=== PATIENT | female | born 1945 | race Hispanic/Latino ===

== ENCOUNTER 2020-02-02 15:08 | Emergency (ER) | payer OTHER ==
[2020-02-02 16:58] LABS: Absolute Lymphocytes (CBC) 1.6 K/uL (0.7-4.9); Basophils % 0.7 % (0-1.3); Hematocrit 38.9 % (36.0-45.0); Lymphocytes % 34.6 % (15.3-44.8); MPV 7.8 fL (7.6-11.3); RBC Red Blood Cell Count 4.15 M/uL (3.86-4.86)
[2020-02-02 17:23] LABS: ALT/SGPT 24 U/L (12-78); AST/SGOT 24 U/L (15-37); Albumin 3.7 g/dL (3.4-5.0); Alkaline Phosphatase 155 U/L (45-117); BUN Blood Urea Nitrogen 12 mg/dL (7-18); Bicarbonate 29 mmol/L (21-32); Bilirubin Direct < 0.1 mg/dL (0-0.2); Bilirubin Total 0.2 mg/dL (0.2-1.0); Glucose Level 83 mg/dL (74-106); Lipase 359 U/L (73-393); Potassium 4.2 mmol/L (3.5-5.1); Protein, Total 7.1 g/dL (6.4-8.2); Sodium Level 144 mmol/L (136-145)
[2020-02-02 18:43] LABS: Urine Blood NEGATIVE (NEG); Urine Glucose NEGATIVE (NEG); Urine Protein NEGATIVE (NEG); Urine Specific Gravity 1.025 (1.005-1.030)
--- NOTE | 2020-02-02 18:52 | RAD REPORT ---
EXAM DESCRIPTION: CT - Abdomen Pelvis W Contrast - 02/02/2020 6:21 pm CLINICAL HISTORY: Abdominal pain COMPARISON: 2008 TECHNIQUE: Computed axial tomography of the abdomen pelvis was obtained. 100 cc Isovue-300 was admin istered intravenously. Oral contrast was not requested which limits evaluation of bowel. All CT scans are performed using dose optimization technique as appropriate and may include automated exposure control or mA/KV adjustment according to patient size. FINDINGS: Small hepatic cysts. Spleen, pancreas, adrenals and left kidney unremarkable. Small right renal cyst There is no evidence of diverticulitis. Normal appendix Spondylosis involves lumbar spine resulting in spinal stenosis IMPRESSION: No acute abnormality is displayed.
[2020-02-02 19:27] VITALS: TEMP 98
[2020-02-02 19:31] VITALS: BP 176/57; O2SAT 98
--- NOTE | 2020-02-05 17:17 | EDPHYS ---
Physician Documentation [facility] Name: Jolanta Stockton Age: 75 yrs Sex: Female : 1945 Arrival Date: 02/02/2020 Time: 15:11 Bed 15 Private MD: RAUDEL Physician Yoel Mcrae HPI: 02/01 16:02 This 75 yrs old Female presents to ER via Ambulatory with complaints of jmm Abdominal Pain - r/o appendicitis. 16:02 The patient presents with abdominal pain right lower quadrant. Onset: The jmm symptoms/episode began/occurred gradually, 2 week(s) ago. The symptoms do not radiate. Associated signs and symptoms: Pertinent negatives: nausea, vomiting, and diarrhea, chest pain, dysuria, fever, shortness of breath, vaginal discharge, vomiting. The symptoms are described as achy. The patient has not experienced similar symptoms in the past. Historical: - Allergies: 15:46 No Known Allergies; ph - Home Meds: 15:46 seizure medication [Active]; ph - PMHx: 15:46 Seizures; ph - Immunization history:: Adult Immunizations unknown. - Social history:: Smoking status: Patient denies any tobacco usage or history of. ROS: 16:02 Constitutional: Negative for fever, chills, and weight loss, Cardiovascular: Negative jmm for chest pain, palpitations, and edema, Respiratory: Negative for shortness of breath, cough, wheezing, and pleuritic chest pain. 16:02 Back: Negative for injury and pain, MS/Extremity: Negative for injury and deformity. 16:02 Abdomen/GI: Positive for abdominal pain. 16:02 All other systems are negative. Exam: 16:02 Constitutional: This is a well developed, well nourished patient who is awake, alert, jmm and in no acute distress. Head/Face: atraumatic. Eyes: EOMI, no conjunctival erythema appreciated ENT: Moist Mucus Membranes Neck: Trachea midline, Supple Chest/axilla: Normal chest wall appearance and motion. Cardiovascular: Regular rate and rhythm. No edema appreciated Respiratory: Normal respirations, no respiratory distress appreciated 16:02 Back: Normal ROM Skin: General appearance color normal MS/ Extremity: Moves all extremities, no obvious deformities appreciated, no edema noted to the lower extremities Neuro: Awake and alert, normal gait Psych: Behavior is normal, Mood is normal, Patient is cooperative and pleasant 16:02 Abdomen/GI: Inspection: abdomen appears normal, Bowel sounds: normal, Palpation: soft, mild abdominal tenderness, in the right lower quadrant. Vital Signs: 15:43 BP 161 / 70; Pulse 56; Resp 18; Temp 98.0; Pulse Ox 100% on R/A; ph 18:35 BP 165 / 53; Pulse 56; Resp 16 S; Pulse Ox 98% on R/A; Pain 5/10; iw 18:36 BP 165 / 53; Pulse 55; Resp 16; Pulse Ox 97% on R/A; dh4 19:19 BP 176 / 57; Pulse 54; Resp 17 S; Pulse Ox 98% on R/A; jd3 MDM: 16:02 Patient medically screened. [facility] 18:57 Data reviewed: vital signs, nurses notes. Counseling: I had a detailed discussion with willard the patient and/or guardian regarding: the historical points, exam findings, and any diagnostic results supporting the discharge/admit diagnosis, lab results, radiology results, the need for outpatient follow up, to return to the emergency department if symptoms worsen or persist or if there are any questions or concerns that arise at home. ED course: Patient is alert and non toxic in appearance in the ED. Advised to follow up with pcp and otherwise given strict return precautions. patient understood and agrees with the plan of care. . 02/01 16:03 Order name: Basic Metabolic Panel; Complete Time: 17: [facility] 02/01 16:03 Order name: CBC with Diff; Complete Time: 17:18 [facility] 02/01 16:03 Order name: Hepatic Function; Complete Time: 17: [facility] 02/01 16:03 Order name: Lipase; Complete Time: 17: [facility] 02/01 18:15 Order name: Urine Dipstick--Ancillary (enter results); Complete Time: 18:41 02/01 18:15 Order name: Urine Dipstick--Ancillary (enter results) 02/01 16:03 Order name: IV Saline Lock; Complete Time: 17:29 [facility] 02/01 16:03 Order name: Labs collected and sent; Complete Time: 17: [facility] 02/01 16:03 Order name: Urine Dipstick-Ancillary (obtain specimen); Complete Time: 18:03 [facility] 02/01 17:18 Order name: CT Abd/Pelvis - IV Contrast Only; Complete Time: 18:55 willard Administered Medications: No medications were administered Disposition: 02/02 07:48 Co-signature as Attending Physician, Yoel Mcrae MD I agree with the assessment and michelle plan of care. Disposition: 02/02/20 19:00 Discharged to Home. Impression: Abdominal tenderness. - Condition is Fair. - Discharge Instructions: Abdominal Pain, Adult. - Medication Reconciliation Form, Thank You Letter, Antibiotic Education, Prescription Opioid Use form. - Follow up: Private Physician; When: 2 - 3 days; Reason: Recheck today's complaints, Continuance of care, Re-evaluation by your physician. Signatures: Dispatcher [employer] EDYoel Ortega MD MD cha Mickail, Joel, PA PA jmm Hall, Patricia, RN RN Brian Guo RN RN jd3 Corrections: (The following items were deleted from the chart) 02/01 19:20 19:00 02/02/2020 19:00 Discharged to Home. Impression: Abdominal tenderness. Condition jd3 is Fair. Forms are Medication Reconciliation Form, Thank You Letter, Antibiotic Education, Prescription Opioid Use. Follow up: Private Physician; When: 2 - 3 days; Reason: Recheck today's complaints, Continuance of care, Re-evaluation by your physician. willard
--- NOTE | 2020-02-05 17:17 | ER ---
Nurse's Notes [facility] Name: Jolanta Stockton Age: 75 yrs Sex: Female : 1945 Arrival Date: 02/02/2020 Time: 15:11 Bed 15 Private MD: Diagnosis: Abdominal tenderness Presentation: 02/01 15:43 Chief complaint: Patient states: RLQ pain x approx 2 weeks, seen at clinic and told to come to ED to check for appendicitis, denies N/V/D or fever. Coronavirus screen: Patient denies a cough. Patient denies shortness of breath or difficulty breathing. Patient denies measured and/or subjective temperature greater than 100.4F prior to today's visit. Patient denies travel on a cruise ship or to a country the [facility] currently lists as an affected area. Patient denies contact with known and/or suspected case of COVID-19. Ebola Screen: No symptoms or risks identified at this time. Initial Sepsis Screen: Does the patient meet any 2 criteria? No. Patient's initial sepsis screen is negative. Does the patient have a suspected source of infection? No. Patient's initial sepsis screen is negative. Risk Assessment: Do you want to hurt yourself or someone else? Patient reports no desire to harm self or others. Onset of symptoms was February 02, 2020. 15:43 Method Of Arrival: Ambulatory 15:43 Acuity: JUDITH 3 Historical: - Allergies: 15:46 No Known Allergies; ph - Home Meds: 15:46 seizure medication [Active]; ph - PMHx: 15:46 Seizures; - Immunization history:: Adult Immunizations unknown. - Social history:: Smoking status: Patient denies any tobacco usage or history of. Screenin:00 Abuse screen: Denies threats or abuse. Denies injuries from another. Nutritional iw screening: No deficits noted. Tuberculosis screening: No symptoms or risk factors identified. Fall Risk IV access (20 points). Assessment: 16:00 General: Appears in no apparent distress. comfortable, Behavior is calm, cooperative. iw Pain: Complains of pain in right lower quadrant. Neuro: Level of Consciousness is awake, alert, obeys commands, Oriented to person, place, time, situation, Moves all extremities. Full function. Cardiovascular: Patient's skin is warm and dry. Respiratory: Respiratory effort is even, unlabored, Respiratory pattern is regular, symmetrical. GI: Bowel sounds present X 4 quads. Abd is soft X 4 quads Abdomen is tender to palpation in right lower quadrant. Derm: Skin is intact, is healthy with good turgor. Musculoskeletal: Range of motion: intact in all extremities. 17:00 Reassessment: Patient appears in no apparent distress at this time. Patient and/or iw family updated on plan of care and expected duration. Pain level reassessed. Patient is alert, oriented x 3, equal unlabored respirations, skin warm/dry/pink. 18:35 Reassessment: Patient appears in no apparent distress at this time. Patient and/or iw family updated on plan of care and expected duration. Pain level reassessed. 19:19 Reassessment: Patient and/or family updated on plan of care and expected duration. Pain jd3 level reassessed. Patient is alert, oriented x 3, equal unlabored respirations, skin warm/dry/pink. pt reported understanding of discharge instructions. Patient states feeling better. Vital Signs: 15:43 BP 161 / 70; Pulse 56; Resp 18; Temp 98.0; Pulse Ox 100% on R/A; ph 18:35 BP 165 / 53; Pulse 56; Resp 16 S; Pulse Ox 98% on R/A; Pain 5/10; iw 18:36 BP 165 / 53; Pulse 55; Resp 16; Pulse Ox 97% on R/A; dh4 19:19 BP 176 / 57; Pulse 54; Resp 17 S; Pulse Ox 98% on R/A; jd3 ED Course: 15:11 Patient arrived in ED. as 15:17 Roger Alicea PA is PHCP. jmm 15:17 Yoel Mcrae MD is Attending Physician. jmm 15:45 Triage completed. ph 15:46 Arm band placed on Patient placed in an exam room. ph 16:16 Loree Santamaria, RN is Primary Nurse. iw 17:00 Initial lab(s) drawn, by me, sent to lab. Inserted saline lock: 20 gauge in left iw antecubital area, using aseptic technique. Blood collected. 18:23 CT Abd/Pelvis - IV Contrast Only In Process Unspecified. EDMS 18:35 Patient has correct armband on for positive identification. iw 19:20 No provider procedures requiring assistance completed. IV discontinued, intact, jd3 bleeding controlled, No redness/swelling at site. Pressure dressing applied. Administered Medications: No medications were administered Outcome: 19:00 Discharge ordered by . willard 19:20 Discharged to home via wheelchair, with family. jd3 19:20 Condition: stable 19:20 Discharge instructions given to patient, Instructed on discharge instructions, follow up and referral plans. Demonstrated understanding of instructions, follow-up care. 19:20 Patient left the ED. jd3 Signatures: Dispatcher [employer] EDMS Roger Alicea PA PA jmm Martinez, Amelia as Williams, Irene, RN Melinda Lieberman RN RN Brian Guo RN RN Bryce Reid [facility]
== END 2020-02-02 19:20 | disposition home or self-care (01) ==
LOC: ER 15:08
DX: R10.813 Right lower quadrant abdominal tenderness (principal); G40.909 Epilepsy, unspecified, not intractable, without status epilepticus
CPT/HCPCS: 85025; 80048; 36415; 80076; 81003; 83690; 74177; 99284; Q9967

== ENCOUNTER 2021-09-10 10:13 | Emergency (ER) | payer OTHER ==
--- OUTSIDE RECORDS SUMMARY | 2021-09-10 10:16 | XMS REPORT | Continuity of Care Document ---
:1945 Author Organization [facility] t Address [address] [place] [address] Care Team Providers Name Role Phone Ajibade_O_AH Attending Clinician Unavailable Ige-Odunjessica_J_AH Attending Clinician Unavailable Ajibade_O_AH Admitting Clinician Unavailable Ige-Odunjessica_J_AH Admitting Clinician Unavailable Payers Payer Name Policy Type Policy Number Effective Date Expiration Date S teo [facility] [place] - [id number] 2019 [employer] 00:00:00 (MEDICARE REPLACEMENT/ADVANT AGE - HMO) Problems This patient has no known problems. Allergies, Adverse Reactions, Alerts This patient has no known allergies or adverse reactions. Medications Ordered Filled Start Stop Current Ordering Indication Dosage Frequency Signature Comments Components Source Medication Medication Date Date Medication? Clinician (SIG) Name Name Levetiracet Levetiracet Yes Na Singleton [address] [facility] Carbamazepi Carbamazepi Yes Na Singleton [address] [facility] Donepezil Donepezil Yes Na Singleton [address] [facility] HCl HCl at bedtime [facility] - [facility] Procedures This patient has no known procedures. Encounters Start End Encounter Admission Attending Care Care Encounter Source Date/Time Date/Time Type Type Clinicians Facility Department ID 2021-08-28 2021-08-28 [facility] [id number] 2021-07-17 2021-07-17 ambulatory [facility] [id number] [facility] 2021-07-17 2021-07-17 amb[facility] [id number] [facility] 2021-06-16 2021-06-16 Outpatient [facility] [id number] [facility] 2021-04-22 2021-04-22 Out[facility] [id number] [facility] 2021-01-23 2021-01-23 Outpatient [facility] [id number] [facility] 2020-10-30 2020-10-30 Out[facility] [id number] [facility] 2020-10-30 2020-10-30 Out[facility] [id number] [facility] 2020-08-16 2020-08-16 Out[facility] [id number] [facility] 2020-08-13 2020-08-13 Out[facility] [id number] [facility] 2020-06-10 2020-06-10 Out[facility] [id number] [facility] 2020-05-10 2020[facility]05-10 [facility] [id number] [facility] 14:40:00 14:40:00 t Yurpy Hunters s [facility] 2020-05-10 2020-05-10 [facility] [id number] [facility] 14:00:00 14:00:00 t [employer]book [employer] [facility] 2020-05-02 2020-05-02 Outpatient Ajibade_O_A VFP VFP [id number] [facility] 04:41:00 04:41:00 H [id number] Family Practic e 2020-05-02 2020-05-02 Outpatient Ajibade_O_A VFP VFP [id number] [facility] 04:41:00 04:41:00 H [id number] Family Practic e 2020-05-02 2020-05-02 Outpatient Ajibade_O_A VFP VFP [id number] [facility] 04:41:00 04:41:00 H [id number] Family Practic e 2020-04-16 2020-04-16 [facility] [id number] [facility] 14:24:00 14:24:00 t [employer]book [employer] [facility] 2020-04-10 2020-04-10 [facility] [id number] [facility] 15:41:00 15:41:00 t [employer]book [employer] [facility] 2020-03-27 2020-03-27 [facility] [id number] [facility] 10:20:00 10:20:00 [employer] [facility] 2020-02-26 2020-02-26 [facility] [id number] [facility] 11:20:00 11:20:00 [employer] [facility] 2019-10-25 2019-10-25 Outpatient Ige-Odunuga VFP VFP [id number] [facility] 07:18:00 07:18:00 _J_AH [id number] Family Practic e 2019-10-25 2019-10-25 Outpatient Ige-Odunuga VFP VFP [phone] [facility] 07:18:00 07:18:00 _J_AH [id number] Family Practic e Results This patient has no known results.
[2021-09-10 11:00] LABS: Absolute Lymphocytes (CBC) 1.3 K/uL (0.7-4.9); Lymphocytes % 31.9 % (15.3-44.8); MPV 7.5 fL (7.6-11.3); RBC Red Blood Cell Count 4.13 M/uL (3.86-4.86)
[2021-09-10 11:20] LABS: BUN Blood Urea Nitrogen 15 mg/dL (7-18); Bicarbonate 28 mmol/L (21-32); Glucose Level 99 mg/dL (74-106); Potassium 4.2 mmol/L (3.5-5.1); Sodium Level 140 mmol/L (136-145); Troponin (Emerg Dept Use Only) < 0.02 ng/mL (0.0-0.045)
--- NOTE | 2021-09-10 11:50 | RAD REPORT ---
EXAM DESCRIPTION: CT - Head Brain Wo Cont - 09/10/2021 11:40 am CLINICAL HISTORY: HTN;Dizziness COMPARISON: HEAD BRAIN W O CONTRAST dated 12/01/2012; MRA Head Wo Cont dated 08/12/2018; Brain W/Wo Co nt dated 08/12/2018; Brain W/Wo Cont dated 07/19/2019; MRI BRAIN W WO CONTRAST dated 10/25/2008; MRI BR AIN W WO CONTRAST dated 02/20/2010; MRI BRAIN W WO CONTRAST dated 07/24/2011; MRI BRAIN WITHOUT CONTRA ST dated 09/04/2013; MRI BRAIN WITHOUT CONTRAST dated 10/04/2015; Brain W/Wo Cont dated 02/24/2018 TECHNIQUE: All CT scans are performed using dose optimization technique as appropriate and may inclu de automated exposure control or mA/KV adjustment according to patient size. 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 Left t emporal lobe encephalomalacia is also unchanged. No acute intracranial hemorrhage. No mass effect or midline shift. No acute large vascular territory infarct are identified. Bilateral basal ganglia mine ralization. Left frontal and pterional craniotomy/craniectomy. Right mastoid effusion. Paranasal sinu ses are well aerated. IMPRESSION: No acute intracranial abnormality. Chronic findings as noted above.
--- NOTE | 2021-09-10 11:57 | EDPHYS ---
Physician Documentation [facility] Name: Jolanta Stockton Age: 76 yrs Sex: Female : 1945 Arrival Date: 09/10/2021 Time: 10:15 Bed 20 Private MD: ED Physician Golden Macdonald HPI: 09/10 11:19 This 76 yrs old Female presents to ER via Ambulatory with complaints of High rn Blood Pressure, Dizziness. 11:19 The patient has elevated blood pressure and discovered this Work. Onset: The rn symptoms/episode began/occurred this morning. Modifying factors:. Associated signs and symptoms: Pertinent positives: dizziness, headache, Pertinent negatives: chest pain, vomiting, weakness. Severity of symptoms: At its worst the blood pressure was moderate, in the emergency department the blood pressure is improved. The patient has not experienced similar symptoms in the past. The patient has not recently seen a physician. Patient reports had a headache behind the left eye at work, coworker checked blood pressure and was elevated to about 180 systolic. Patient is not on any antihypertensives. Patient states has been under a lot of stress lately and get stressed at work. Episode of headache and dizziness lasted for about 10 or 15 minutes and went away on its own. Called PCP and told to come to the ER for evaluation. Currently feels back to baseline without any complaints. Denies any chest pain/syncope/abdominal pain/shortness of breath. No focal weakness or numbness.. Historical: - Allergies: 10:33 No Known Allergies; ss - PMHx: 10:33 Seizures; ss - Immunization history:: Client reports receiving the 2nd dose of the Covid vaccine. - Social history:: Smoking status: Patient denies any tobacco usage or history of. - Family history:: not pertinent. - Hospitalizations: : No recent hospitalization is reported. ROS: 11:19 Constitutional: Negative for fever, chills, and weight loss, Eyes: Negative for injury, rn pain, redness, and discharge, Neck: Negative for injury, pain, and swelling, Cardiovascular: Negative for chest pain, palpitations, and edema, Respiratory: Negative for shortness of breath, cough, wheezing, and pleuritic chest pain, Abdomen/GI: Negative for abdominal pain, nausea, vomiting, diarrhea, and constipation, Back: Negative for injury and pain, MS/Extremity: Negative for injury and deformity, Skin: Negative for injury, rash, and discoloration, Neuro: Negative for weakness, numbness, tingling, and seizure. Exam: 11:19 Constitutional: This is a well developed, well nourished patient who is awake, alert, rn and in no acute distress. Head/Face: Normocephalic, atraumatic. Eyes: Pupils equal round and reactive to light, extra-ocular motions intact. Lids and lashes normal. Conjunctiva and sclera are non-icteric and not injected. Cornea within normal limits. Periorbital areas with no swelling, redness, or edema. Neck: Trachea midline, no masses palpated, and no cervical lymphadenopathy. Supple, full range of motion without nuchal rigidity, or vertebral point tenderness. No Meningismus. Cardiovascular: Bradycardic, regular. No pulse deficits. Respiratory: Speaking full sentences, unlabored. No increased work of breathing, no retractions or nasal flaring. Abdomen/GI: Soft, non-tender Skin: Warm, dry MS/ Extremity: Pulses equal, no cyanosis. Neurovascular intact. Full, normal range of motion. Equal circumference. Neuro: Awake and alert, GCS 15, oriented to person, place, time, and situation. Cranial nerves II-XII grossly intact. Motor strength 5/5 in all extremities. Sensory grossly intact. Cerebellar exam normal. Vital Signs: 10:32 BP 154 / 52; Pulse 58; Resp 16; Temp 98.1(TE); Pulse Ox 100% on R/A; Weight 47.63 kg; ss Height 5 ft. 0 in. (152.40 cm); Pain 3/10; 10:45 BP 151 / 57; Pulse 50; Resp 17 S; Pulse Ox 99% on R/A; jg9 11:15 BP 146 / 60; Pulse 50; Resp 17 S; Pulse Ox 98% on R/A; jg9 12:05 BP 145 / 58; Pulse 49; Resp 17 S; Pulse Ox 98% on R/A; jg9 13:15 BP 158 / 69; Pulse 51; Resp 15 S; Pulse Ox 100% on R/A; jg9 10:32 Body Mass Index 20.51 (47.63 kg, 152.40 cm) [place] Coma Score: 10:40 Eye Response: spontaneous(4). Verbal Response: oriented(5). Motor Response: obeys jg9 commands(6). Total: 15. MDM: 10:25 Patient medically screened. rn 11:54 Differential diagnosis: hypertensive crisis, Malignant HTN, Acute stress reaction, rn malignant hypertension, dizziness. Differential diagnosis: CVA, intracerebral hemorrhage. Data reviewed: vital signs, nurses notes. Counseling: I had a detailed discussion with the patient and/or guardian regarding: the historical points, exam findings, and any diagnostic results supporting the discharge/admit diagnosis, lab results, radiology results, the need for outpatient follow up, to return to the emergency department if symptoms worsen or persist or if there are any questions or concerns that arise at home. Response to treatment: the patient's symptoms have markedly improved after treatment, the patient's condition has returned to base line, the patient is now symptom free, and as a result, I will discharge patient. Special discussion: I discussed with the patient/guardian in detail that at this point there is no indication for admission to the hospital. It is understood, however, that if the symptoms persist or worsen the patient needs to return immediately for re-evaluation. ED course: Blood pressure improved on its own without intervention. Still slightly elevated. Patient back to baseline without complaints with negative work-up here including negative CT of the head. Normal renal function as well as negative troponin. Will discharge home with instructions to check blood pressure regularly and take those measurements to PCP as may need low-dose blood pressure medication.. 12:58 ED course: Repeat trop neg. Recommend cardiology f/u.. rn 09/10 10:43 Order name: CBC with Diff; Complete Time: 11:41 rn 09/10 10:43 Order name: Basic Metabolic Panel; Complete Time: 11:41 rn 09/10 10:43 Order name: CT Head Brain wo Cont; Complete Time: 11:54 rn 09/10 10:43 Order name: EKG; Complete Time: 10:44 rn 09/10 10:43 Order name: Troponin (emerg Dept Use Only); Complete Time: 11:41 rn 09/10 12:16 Order name: Troponin (emerg Dept Use Only); Complete Time: 12:58 rn 09/10 10:43 Order name: IV Start; Complete Time: 11:52 rn 09/10 10:43 Order name: EKG - Nurse/Tech; Complete Time: 12:03 rn 09/10 10:43 Order name: Cardiac monitoring; Complete Time: 11:52 rn Administered Medications: No medications were administered Disposition Summary: 09/10/21 12:59 Discharge Ordered Location: Home(09/10/21 12:59) rn Problem: new(09/10/21 12:59) rn Symptoms: have improved(09/10/21 12:59) rn Condition: Stable(09/10/21 12:59) rn Diagnosis - Essential (primary) hypertension(09/10/21 12:59) rn - Dizziness and giddiness(09/10/21 12:59) rn - Bradycardia, unspecified rn Followup: rn - With: Private Physician - When: As needed - Reason: Recheck today's complaints, Re-evaluation by your physician Discharge Instructions: - Discharge Summary Sheet rn - Bradycardia, Adult rn - Dizziness rn - Hypertension, Adult rn - How to Take Your Blood Pressure, [id number]-[id number] rn Forms: - Medication Reconciliation Form rn - Thank You Letter rn - 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
--- NOTE | 2021-09-10 11:57 | ER ---
Nurse's Notes [facility] Name: Jolanta Stockton Age: 76 yrs Sex: Female : 1945 Arrival Date: 09/10/2021 Time: 10:15 Bed 20 Private MD: Diagnosis: Essential (primary) hypertension;Dizziness and giddiness;Bradycardia, unspecified Presentation: 09/10 10:32 Chief complaint: Patient states: Sent from work for high blood pressure. Pt c/o mild ss pain to L eye and head and when they checked her blood pressure it was 180 systolic. Coronavirus screen: Client denies travel out of the [place] in the last 14 days. Ebola Screen: Patient denies exposure to infectious person. Patient denies travel to an Ebola-affected area in the 21 days before illness onset. Initial Sepsis Screen: Does the patient meet any 2 criteria? No. Patient's initial sepsis screen is negative. Does the patient have a suspected source of infection? No. Patient's initial sepsis screen is negative. Risk Assessment: Do you want to hurt yourself or someone else? Patient reports no desire to harm self or others. Onset of symptoms was September 10, 2021. 10:32 Method Of Arrival: Ambulatory ss 10:32 Acuity: JUDITH 3 ss Historical: - Allergies: 10:33 No Known Allergies; ss - PMHx: 10:33 Seizures; ss - Immunization history:: Client reports receiving the 2nd dose of the Covid vaccine. - Social history:: Smoking status: Patient denies any tobacco usage or history of. - Family history:: not pertinent. - Hospitalizations: : No recent hospitalization is reported. Screenin:54 Abuse screen: Denies threats or abuse. Denies injuries from another. Nutritional jg9 screening: No deficits noted. Tuberculosis screening: No symptoms or risk factors identified. Fall Risk Secondary diagnosis (15 points) seizures, dementia. Assessment: 10:35 General: Appears in no apparent distress. Behavior is calm. Pain: Denies pain. Neuro: jg9 Reports dizziness, since this morning. Cardiovascular: Rhythm is sinus bradycardia. Respiratory: No deficits noted. GI: No deficits noted. : No deficits noted. EENT: No deficits noted. Derm: No deficits noted. Musculoskeletal: No deficits noted. Vital Signs: 10:32 BP 154 / 52; Pulse 58; Resp 16; Temp 98.1(TE); Pulse Ox 100% on R/A; Weight 47.63 kg; ss Height 5 ft. 0 in. (152.40 cm); Pain 3/10; 10:45 BP 151 / 57; Pulse 50; Resp 17 S; Pulse Ox 99% on R/A; jg9 11:15 BP 146 / 60; Pulse 50; Resp 17 S; Pulse Ox 98% on R/A; jg9 12:05 BP 145 / 58; Pulse 49; Resp 17 S; Pulse Ox 98% on R/A; jg9 13:15 BP 158 / 69; Pulse 51; Resp 15 S; Pulse Ox 100% on R/A; jg9 10:32 Body Mass Index 20.51 (47.63 kg, 152.40 cm) ss Alph[place] Coma Score: 10:40 Eye Response: spontaneous(4). Verbal Response: oriented(5). Motor Response: obeys jg9 commands(6). Total: 15. ED Course: 10:15 Patient arrived in ED. ds1 10:25 Golden Macdonald MD is Attending Physician. rn 10:33 Triage completed. ss 10:33 Arm band placed on right wrist. ss 10:35 Phuong Smith is Primary Nurse. jg9 10:40 Patient has correct armband on for positive identification. Bed in low position. Call jg9 light in reach. Side rails up X 1. 10:43 Inserted saline lock: 20 gauge in right antecubital area, using aseptic technique. jg9 Blood collected. 11:38 CT Head Brain wo Cont In Process Unspecified. EDMS 13:26 No provider procedures requiring assistance completed. IV discontinued. jg9 Administered Medications: No medications were administered Outcome: 11:56 Discharge ordered by MD. rn 12:59 Discharge ordered by MD. rn 13:26 Discharged to home ambulatory, with family. jg9 13:26 Condition: stable 13:26 Discharge instructions given to patient, family, Instructed on discharge instructions, follow up and referral plans. Demonstrated understanding of instructions, follow-up care. 13:26 Patient left the ED. jg9 Signatures: Dispatcher [employer] EDHI Marychuy Alves ds1 Golden Macdonald MD MD rn Smirch, Shelby, RN RN Phuong Smith jg9 Corrections: (The following items were deleted from the chart) 10:47 10:32 Acuity: JUDITH 4 ss ss
[2021-09-10 13:30] VITALS: TEMP 98.1
[2021-09-10 13:37] VITALS: BP 158/69; O2SAT 100
== END 2021-09-10 13:26 | disposition home or self-care (01) ==
LOC: ER 10:13
DX: I10 Essential (primary) hypertension (principal); R00.1 Bradycardia, unspecified
CPT/HCPCS: 36415; 70450; 80048; 84484; 85025; 93005; 99284

== ENCOUNTER 2021-11-19 17:38 | Observation (INO) | payer OTHER ==
--- OUTSIDE RECORDS SUMMARY | 2021-11-19 17:41 | XMS REPORT | Continuity of Care Document ---
:1945 Author Organization [facility] t Address [address] [place] [address] Care Team Providers Name Role Phone Bushra Singleton Attending Clinician Unavailable Ajibade_O_AH Attending Clinician Unavailable Ige-Odunuga_J_AH Attending Clinician Unavailable Ajibade_O_AH Admitting Clinician Unavailable Ige-Odunuga_J_AH Admitting Clinician Unavailable Payers Payer Name Policy Type Policy Number Effective Date Expiration Date S teo [facility] - [id number] 2019 [employer] 00:00:00 (MEDICARE REPLACEMENT/ADVANT AGE - HMO) Problems This patient has no known problems. Allergies, Adverse Reactions, Alerts This patient has no known allergies or adverse reactions. Medications Ordered Filled Start Stop Current Ordering Indication Dosage Frequency Signature Comments Components Source Medication Medication Date Date Medication? Clinician (SIG) Name Name Levetiracet Levetiracet Yes Na Singleton [address] [facility] Carbamazepi Carbamazepi Yes Na Singleton [address] [facility] Donepezil Donepezil Yes Na Singleton [address] [facility] HCl HCl at bedtime [facility] Procedures This patient has no known procedures. Encounters Start End Encounter Admission Attending Care Care Encounter Source Date/Time Date/Time Type Type Clinicians Facility Department ID 2021-10-30 Outpatient Singleton, Na [facility]C [facility] [id number] [facility] 12[facility]49[facility]00 [facility] 2021-10-03 Outpatient Areli, Na [facility] [id number] [facility] 15:04[facility]00 [facility] 2021-10-01 Outpatient Areli Na [facility]LMLC [facility] [id number] [facility] 14[facility]42:01 [facility] 2021-10-01 Outpatient Areli, Na [facility]C [facility] [id number] [facility] 14[facility]37:58 [facility] 2021-10-01 Outpatient Areli, Na [facility]LMLC [facility] [id number] [facility] 12:10:41 [id number] [facility] 2021-10-01 Outpatient Areli, Na [facility]LMLC [facility] [id number] [facility] 11:42:42 [id number] [facility] 2021-10-01 Outpatient Areli, Na [facility]C [facility] [id number] [facility] 11:32:03 [id number] [facility] 2021-10-01 Outpatient Areli, Angelika [facility]C [facility] [id number] [facility] 11:28:06 [id number] [facility] 2021-10-30 2021-10-30 ambulatory [facility] [id number] [facility] 2021-10-01 2021-10-01 ambulatory [facility] [id number] [facility] 2021-09-26 2021-09-26 ambulatory [facility] [id number] [facility] 2021-09-26 2021-09-26 ambulatory [facility] [id number] [facility] 2021-09-17 2021-09-17 ambulatory [facility] [id number] [facility] 2021-09-10 2021-09-10 ambulatory [facility] [id number] [facility] 2021-08-28 2021-08-28 ambulatory [facility] [id number] [facility] 2021-07-17 2021-07-17 ambulatory [facility] [id number] [facility] 2021-07-17 2021-07-17 ambulatory [facility] [id number] [facility] 2021-06-16 2021-06-16 Outpatient [facility] [id number] [facility] 2021-04-22 2021-04-22 Outpatient [facility] [id number] [facility] 2021-01-23 2021-01-23 Outpatient [facility] [id number] [facility] 2020-10-30 2020-10-30 Outpatient [facility] [id number] [facility] 2020-10-30 2020-10-30 Outpatient [facility] [id number] [facility] 2020-08-16 2020-08-16 Outpatient [facility] [id number] [facility] 2020-08-13 2020-08-13 Outpatient [facility] [id number] [facility] 2020-06-10 2020-06-10 Outpatient [facility] [id number] [facility] 2020-05-10 2020-05-10 [facility] [id number] [facility] 14:40:00 14:40:00 t [facility] 2020-05-10 2020-05-10 [facility] [id number] [facility] 14:00:00 14:00:00 t [employer] [facility] 2020-05-02 2020-05-02 Outpatient Ajibade_O_A VFP VFP [id number] [facility] 04:41:00 04:41:00 H [id number] Family Practic e 2020-05-02 2020-05-02 Outpatient Ajibade_O_A VFP VFP [id number] [facility] 04:41:00 04:41:00 H [id number] Family Practic e 2020-05-02 2020-05-02 Outpatient Ajibade_O_A VFP VFP [id number] [facility] 04:41:00 04:41:00 H [id number] Family Practic e 2020-04-16 2020-04-16 [facility] [id number] [facility] 14:24:00 14:24:00 t [facility] 2020-04-10 2020-04-10 [facility] [id number] [facility] 15:41:00 15:41:00 t [facility] 2020-03-27 2020-03-27 [facility] [id number] 10:20:00 10:20:00 t [facility] 2020-02-26 2020-02-26 [facility] [id number] [facility] 11:20:00 11:20:00 t [employer] [facility] 2019-10-25 2019-10-25 [id number] 07:18:00 07:18:00 _J_AH [id number] Family Practic e 2019-10-25 2019-10-25 [id number] 07:18:00 07:18:00 _J_AH [id number] Family Practic e Results This patient has no known results.
[2021-11-19] MEDS ORDERED: MECLIZINE HCL 12.5 MG TAB ONE (19:23)
[2021-11-19] MEDS ORDERED: ACETAMINOPHEN 325 MG TABLET ONE (19:23)
[2021-11-19 19:28] LABS: Absolute Lymphocytes (CBC) 1.7 K/uL (0.7-4.9); Lymphocytes % 24.7 % (15.3-44.8); MPV 7.4 fL (7.6-11.3); RBC Red Blood Cell Count 4.28 M/uL (3.86-4.86)
[2021-11-19 19:30] LABS: Protime INR 0.91
[2021-11-19] MEDS ORDERED: HYDRALAZINE HCL 20 MG/ML VIAL ONE (19:35)
[2021-11-19 19:40] LABS: Albumin 3.7 g/dL (3.4-5.0); BUN Blood Urea Nitrogen 16 mg/dL (7-18); Bicarbonate 32 mmol/L (21-32); Glucose Level 153 mg/dL (74-106); Potassium 4.4 mmol/L (3.5-5.1); Sodium Level 141 mmol/L (136-145)
[2021-11-19] MEDS ORDERED: NA CHLORIDE 0.9% 500 ML ONE (19:45)
--- NOTE | 2021-11-19 20:22 | RAD REPORT ---
EXAM DESCRIPTION: CT - Head Brain Wo Cont - 11/19/2021 7:59 pm CLINICAL HISTORY: Dizziness and headache COMPARISON: September 2021 TECHNIQUE: Computed axial tomography of the head was obtained. IV contrast was not requested. All CT scans are performed using dose optimization technique as appropriate and may include automated exposure control or mA/KV adjustment according to patient size. FINDINGS: An intracranial bleed is not seen . The ventricles are normal in caliber. No extra-axial fluid collection is noted. Left craniotomy with left temporal lobe gliosis. Meningioma involving the left sphenoid bone, left te mporal fossa and left orbit unchanged. Opacification right mastoid unchanged IMPRESSION: No significant change in the left meningioma. Opacification right mastoid may indicate mastoiditis and should be correlated clinically
[2021-11-19 20:25] LABS: ALT/SGPT 21 U/L (12-78); AST/SGOT 22 U/L (15-37); Alkaline Phosphatase 121 U/L (45-117); Bilirubin Total 0.3 mg/dL (0.2-1.0)
--- NOTE | 2021-11-19 20:28 | RAD REPORT ---
EXAM DESCRIPTION: Jessica Single View11/19/2021 7:24 pm CLINICAL HISTORY: Chest pain COMPARISON: 2012 FINDINGS: The lungs appear clear of acute infiltrate. The heart is mildly to moderately enlarged. A fidel is tortuous/ectatic IMPRESSION: No acute abnormalities displayed
[2021-11-19 20:29] LABS: Urine Amorphous Sediment 3+ /HPF (NONE SEEN); Urine Bacteria >50 /HPF (<20); Urine Mucus 2+ /HPF (NONE SEEN); Urine RBC <5 /HPF (NONE SEEN)
[2021-11-19 20:40] LABS: Bilirubin Direct < 0.1 mg/dL (0-0.2)
[2021-11-19] MEDS ORDERED: ONDANSETRON 4 MG/2 ML VIAL ONE ×2 (20:48→21:39)
[2021-11-19] MEDS ORDERED: MORPHINE 2 MG/ML SYR ONE (20:48)
[2021-11-19] MEDS ORDERED: ASPIRIN 81 MG CHEWABLE TABLET ONE (22:12)
[2021-11-19 22:48] LABS: NT PRO-BNP 205 pg/mL (<450)
--- NOTE | 2021-11-19 22:58 | P.HP ---
Certification for Inpatient Patient admitted to: Observation With expected LOS: <2 Midnights Patient will require the following post-hospital care: None Practitioner: I am a practitioner with admitting privileges, knowledge of patient current condition, hospital course, and medical plan of care. Services: Services provided to patient in accordance with Admission requirements found in Title 42 Section 412.3 of the Code of Federal Regulations Patient History Date of Service: 11/19/21 Primary Care Provider: Dr. Singleton, neurology Dr. mcclure Reason for admission: Chest pain History of Present Illness: 76-year-old female history of seizure disorder, hypertension previous brain mass status post craniotomy presents the emergency department for hypertension, dizziness and blurred vision. Patient reported that her blood pressure around 200 systolic at home they called the primary care doctor does recommend that she come to the emergency department for evaluation. During her time in the emergency department patient developed chest pain, shortness of breath and nausea that lasted for couple minutes. During her stay in the emergency room her blood pressure did improve most recent blood pressure is 161/56 heart rate is 58 her labs were overall unremarkable initial EKG showed some T wave inversions. CT head demonstrated no significant change in known left meningioma does mention opacification of the right mastoid which may indicate mastoiditis and should be clinically correlated, patient without any pain in this area or overlying cellulitis. Chest x-ray was unremarkable given onset of pain during ER stay ED provider wishes to admit to observation. Patient has not ever seen a hand screen printer or had any kind of cardiac evaluation in the past. Allergies No Known Allergies Allergy (Unverified 12/01/12 12:08) Home Medications: Donepezil HCl 10 mg PO DAILY 12/01/12 levETIRAcetam [Keppra*] 750 mg PO BID #60 12/03/12 - Past Medical/Surgical History -: Seizure disorder -: Hypertension -: Meningioma previous brain mass -: Craniotomy Psychosocial/ Personal History: Patient lives at home with her family - Family History Family History: Reviewed- Non-Contributory - Social History Smoking Status: Never smoker Alcohol use: No CD- Drugs: No Caffeine use: Yes Place of Residence: Home Review of Systems 10-point ROS is otherwise unremarkable Cardiovascular: As per HPI Physical Examination - Physical Exam General: Alert, In no apparent distress, Oriented x3 HEENT: Atraumatic, PERRLA, Mucous membr. moist/pink, EOMI, Sclerae nonicteric Neck: Supple, 2+ carotid pulse no bruit, No LAD, Without JVD or thyroid abnormality Respiratory: Clear to auscultation bilaterally, Normal air movement Cardiovascular: Regular rate/rhythm, Normal S1 S2 Gastrointestinal: Normal bowel sounds, No tenderness Musculoskeletal: No tenderness Integumentary: No rashes Neurological: Normal speech, Normal strength at 5/5 x4 extr, Normal tone, Normal affect - Studies Laboratory Data (last 24 hrs) 11/19/21 19:12: PT 10.0, INR 0.91 11/19/21 19:12: WBC 6.80, Hgb 13.2, Hct 39.0, Plt Count 194 11/19/21 19:12: Sodium 141, Potassium 4.4, BUN 16, Creatinine 0.77, Glucose 153 H, Total Bilirubin 0.3, AST 22, ALT 21, Alkaline Phosphatase 121 H Assessment and Plan - Plan Assessment: Chest pain rule out ACS Hypertension Seizure disorder Plan: Chest pain rule out ACS: Monitor on telemetry, cardiology consult in place, trend troponins. Daily aspirin, statin. Patient mildly bradycardic we will hold off on beta-ifrah therapy. As needed morphine. Pain-free at this time. Appreciate further input from cardiology Hypertension: Home beta-blockers given mild bradycardia, initiate therapy with lisinopril. Seizure disorder: Obtain and continue home medication. DVT PPX: Lovenox Code status: Full code Discharge Plan: Home Plan to discharge in: 24 Hours - Advance Directives Does patient have a Living Will: No Does patient have a Durable POA for Healthcare: No - Code Status/Comfort Care Code Status Assessed: Yes (full code) Critical Care: No Time Spent Managing Pts Care (In Minutes): 55
--- NOTE | 2021-11-19 23:00 | ER ---
Nurse's Notes [facility] Name: Jolanta Stockton Age: 76 yrs Sex: Female : 1945 Arrival Date: 11/19/2021 Time: 17:44 Bed 24 Private MD: Diagnosis: Chest pain, unspecified;Hypertensive heart disease without heart failure Presentation: 11/19 17:54 Chief complaint: Patient states: "Patient c/o tremors, vertigo, headache, high blood ag7 pressure and blurred vision that started at 1530 today. Coronavirus screen: Client denies travel out of the [place] in the last 14 days. At this time, the client does not indicate any symptoms associated with coronavirus-19. Ebola Screen: No symptoms or risks identified at this time. Initial Sepsis Screen: Does the patient meet any 2 criteria? No. Patient's initial sepsis screen is negative. Does the patient have a suspected source of infection? No. Patient's initial sepsis screen is negative. Risk Assessment: Do you want to hurt yourself or someone else? Patient reports no desire to harm self or others. Onset of symptoms was November 19, 2021. 17:54 Method Of Arrival: Ambulatory ag7 17:54 Acuity: JUDITH 3 ag7 19:03 Chief complaint:. ag7 Triage Assessment: 17:58 Headache History: Other c/o resolved headache. General: Appears in no apparent ag7 distress. comfortable, well nourished, Behavior is calm, cooperative, appropriate for age. Pain: Denies pain. Neuro: Level of Consciousness is awake, alert, obeys commands, Oriented to person, place, situation, Appropriate for age. 21:58 Pain: Also complains of nausea. ss7 21:58 Pain: Pain began. ss7 Historical: - Allergies: 17:56 No Known Allergies; ag7 - Home Meds: 18:07 Famotidine Oral [Active]; losartan potassium [Active]; Prednisone Oral [Active]; ag7 donepezil oral [Active]; Carbamazepine Oral [Active]; Keppra Oral [Active]; - PMHx: 17:56 Seizures; Hypertensive disorder; ag7 - PSHx: 17:57 brain surgery; ag7 - Immunization history:: Client reports receiving the 2nd dose of the Covid vaccine, Flu vaccine is up to date. - Social history:: Smoking status: Patient denies any tobacco usage or history of. Screenin:29 Abuse screen: Denies threats or abuse. Nutritional screening: No deficits noted. vc1 Tuberculosis screening: No symptoms or risk factors identified. Fall Risk None identified. No fall in past 12 months (0 pts). Secondary diagnosis (15 points) IV access (20 points). Ambulatory Aid- None/Bed Rest/Nurse Assist (0 pts). Gait- Normal/Bed Rest/Wheelchair (0 pts) Mental Status- Oriented to own ability (0 pts). Total Moy Fall Scale indicates Low Risk Score (25-44 pts). Side Rails Up X 2 Family Present and informed to notify staff if they need to leave bedside. Assessment: 20:50 Reassessment: Pt with sudden onset of sob, cp, and nausea. EKG performed and BARBARA Tompkins Kulwant notified. VO for morphine 2mg/zofran 2mg iv. . 21:40 Reassessment: Pt with active vomiting episode. BARBARA Tompkins notified and vo for zofran 4mg ss7 ivp. SS. 23:25 Reassessment: Okay for patient to eat per PA verbal order. Daughter has food at 7 bedside. SS. 11/20 00:00 Reassessment: [facility] for further charting. vc1 Vital Signs: 11/19 17:54 BP 185 / 61; Pulse 55; Resp 16 S; Temp 98.4(O); Pulse Ox 96% on R/A; Weight 47.63 kg ag7 (R); Height 5 ft. 0 in. (152.40 cm) (R); Pain 0/10; 19:28 BP 196 / 64; Pulse 52; Resp 20; Pulse Ox 100% ; vc1 20:54 BP 169 / 58; Pulse 63; Resp 16; Pulse Ox 100% on R/A; ss7 21:55 BP 161 / 56; Pulse 58; Resp 18; Pulse Ox 100% on R/A; ss7 23:26 BP 144 / 51; Pulse 56; Resp 18; Pulse Ox 100% ; ss7 17:54 Body Mass Index 20.51 (47.63 kg, 152.40 cm) ag7 ED Course: 17:44 Patient arrived in ED. mr 17:56 Triage completed. ag7 17:57 Arm band placed on. ag7 18:14 Yoel Tompkins PA is PHCP. cp 18:14 Isai Brennan DO is Attending Physician. cp 19:10 Inserted saline lock: 20 gauge in right antecubital area, using aseptic technique. vc1 Blood collected. 19:13 EKG done, by ED staff, reviewed by Yoel JIMENEZ. jd3 19:17 Kath Carlos, RN is Primary Nurse. vc1 19:24 XRAY Chest (1 view) In Process Unspecified. EDMS 19:26 Basic Metabolic Panel Sent. vc1 19:26 CBC with Diff Sent. vc1 19:26 LFT's Sent. vc1 19:58 CT Head Brain wo Cont In Process Unspecified. EDMS 20:20 Orestes Najera MD is Attending Physician. cp 21:41 No provider procedures requiring assistance completed. ss7 22:15 COVID-19 SARS RT PCR (Document "Date of Onset" if Symptomatic) Sent. ss7 22:58 Vince Macdonald MD is Hospitalizing Provider. cp 23:59 Report given to Kath. ss7 11/20 00:00 Patient admitted, IV remains in place. vc1 Administered Medications: 03 19:25 Drug: Meclizine 25 mg Route: PO; vc1 19:25 Drug: Tylenol 650 mg Route: PO; vc1 19:37 Drug: hydrALAZINE 10 mg Route: IVP; Site: right antecubital; vc1 20:45 Drug: NS 0.9% 250 ml Route: IV; Rate: bolus; Site: right antecubital; vc1 21:00 Follow up: IV Status: Completed infusion ss7 20:45 Drug: NS 0.9% 250 ml Route: IV; Rate: 125 ml/hr; Site: right antecubital; vc1 20:53 Drug: morphine 2 mg Route: IVP; Site: right antecubital; ss7 21:42 Follow up: Response: Pain is decreased ss7 20:53 Drug: Ondansetron 2 mg Route: IVP; Site: right antecubital; ss7 21:42 Follow up: Response: Nausea is increased ss7 21:41 Drug: Zofran (Ondansetron) 4 mg Route: IVP; Site: right antecubital; ss7 22:18 Follow up: Response: Nausea is decreased ss7 22:10 Drug: Aspirin Chewable Tablet 324 mg Route: PO; ss7 23:26 Follow up: Response: No adverse reaction ss7 22:11 Not Given (HR 55-60; informed BARBARA Tompkins; instructed to hold.): Metoprolol 25 mg PO once ss7 Outcome: 22:59 Decision to Hospitalize by Provider. joe 11/20 00:00 Admitted to ER Hold. Please see [facility] for further documentation. vc1 Condition: good Instructed on the need for admit. 08:01 Patient left the ED. rowland Signatures: Dispatcher [employer] EDWV Debbie Galicia mr Yoel Tompkins PA PA cp Davies, Jonathon RN RN jd3 Au-StagerEdith RN RN rowland Kath Carlos RN RN vc1 Kristi Olvera RN RN ss7 Leti Shultz RN RN ag7 Corrections: (The following items were deleted from the chart) 11/19 19:04 17:54 Chief complaint: Patient states: "Patient c/o tremors, vertigo, headache, and ag7 blurred vision that started at 1530 today. ag7 22:02 21:55 BP 161 / 56; Pulse 69bpm; Resp 18bpm; Pulse Ox 100% RA; ss7 ss7
--- NOTE | 2021-11-19 23:00 | EDPHYS ---
Physician Documentation [facility] Name: Jolanta Stockton Age: 76 yrs Sex: Female : 1945 Arrival Date: 11/19/2021 Time: 17:44 Bed 24 Private MD: ED Physician Orestes Najera HPI: 11/19 19:00 This 76 yrs old Female presents to ER via Ambulatory with complaints of High cp Blood Pressure, Headache, Dizziness. 19:00 The patient has elevated blood pressure and discovered this at home. Onset: The cp symptoms/episode began/occurred today. 19:00 Associated signs and symptoms: Pertinent positives: lightheadedness, episode of chest cp while at home that is now resolved. Historical: - Allergies: 17:56 No Known Allergies; ag7 - Home Meds: 18:07 Famotidine Oral [Active]; losartan potassium [Active]; Prednisone Oral [Active]; ag7 donepezil oral [Active]; Carbamazepine Oral [Active]; Keppra Oral [Active]; - PMHx: 17:56 Seizures; Hypertensive disorder; ag7 - PSHx: 17:57 brain surgery; ag7 - Immunization history:: Client reports receiving the 2nd dose of the Covid vaccine, Flu vaccine is up to date. - Social history:: Smoking status: Patient denies any tobacco usage or history of. ROS: 19:05 Constitutional: Negative for body aches, chills, fever, poor PO intake. cp 19:05 Eyes: Negative for injury, pain, redness, and discharge. cp 19:05 ENT: Negative for drainage from ear(s), ear pain, sore throat, difficulty swallowing, difficulty handling secretions. 19:05 Neck: Negative for pain with movement, pain at rest, stiffness. 19:05 Cardiovascular: Negative for chest pain, edema, palpitations. 19:05 Respiratory: Negative for cough, shortness of breath, wheezing. 19:05 Abdomen/GI: Negative for abdominal pain, vomiting, diarrhea, constipation. 19:05 Back: Negative for pain at rest, pain with movement. 19:05 : Negative for urinary symptoms. 19:05 Skin: Negative for rash. 19:05 Neuro: Positive for dizziness, headache, Negative for numbness, syncope, weakness. 19:05 All other systems are negative. Exam: 19:08 Constitutional: The patient appears in no acute distress, alert, awake, cp non-diaphoretic, non-toxic, well developed, well nourished. 19:08 Head/Face: Normocephalic, atraumatic. cp 19:08 Eyes: Periorbital structures: appear normal, Pupils: equal, round, and reactive to light and accomodation, Extraocular movements: intact throughout, Conjunctiva: normal, no exudate, no injection, Sclera: no appreciated abnormality, Lids and lashes: appear normal, bilaterally. 19:08 ENT: External ear(s): are unremarkable, Ear canal(s): are normal, clear, TM's: dullness, bilaterally, Nose: is normal, Mouth: Lips: moist, Oral mucosa: pink and intact, moist, Posterior pharynx: Airway: no evidence of obstruction, patent, swelling, is not appreciated, erythema, is not appreciated, exudate, is not appreciated. 19:08 Neck: ROM/movement: is normal, is supple, without pain, no range of motions limitations, no meningismus. 19:08 Chest/axilla: Inspection: normal. 19:08 Cardiovascular: Rate: bradycardic, Rhythm: regular, Edema: is not appreciated, JVD: is not appreciated. 19:08 Respiratory: the patient does not display signs of respiratory distress, Respirations: normal, no use of accessory muscles, no retractions, labored breathing, is not present, Breath sounds: are clear throughout, no decreased breath sounds, no stridor, no wheezing. 19:08 Abdomen/GI: Inspection: abdomen appears normal, Palpation: abdomen is soft and non-tender, in all quadrants. 19:08 Back: pain, is absent, ROM is normal. 19:08 Neuro: Orientation: to person, place \\T\\ time. Mentation: is normal, Cerebellar function: Romberg testing is negative, Motor: moves all fours, strength is normal, Sensation: is normal. 19:11 ECG was reviewed by the Attending Physician. cp 20:45 ECG was reviewed by the Attending Physician. cp Vital Signs: 17:54 BP 185 / 61; Pulse 55; Resp 16 S; Temp 98.4(O); Pulse Ox 96% on R/A; Weight 47.63 kg ag7 (R); Height 5 ft. 0 in. (152.40 cm) (R); Pain 0/10; 19:28 BP 196 / 64; Pulse 52; Resp 20; Pulse Ox 100% ; vc1 20:54 BP 169 / 58; Pulse 63; Resp 16; Pulse Ox 100% on R/A; ss7 21:55 BP 161 / 56; Pulse 58; Resp 18; Pulse Ox 100% on R/A; ss7 23:26 BP 144 / 51; Pulse 56; Resp 18; Pulse Ox 100% ; ss7 17:54 Body Mass Index 20.51 (47.63 kg, 152.40 cm) ag7 MDM: 18:44 Patient medically screened. ms3 19:00 Differential diagnosis: hypertensive crisis, Malignant HTN, CVA, intracerebral cp hemorrhage, acute OR. 22:55 Data reviewed: vital signs, nurses notes, lab test result(s), EKG, radiologic studies, cp plain films. 22:55 Data interpreted: ekg monitor tech: rhythm is normal sinus rhythm, Pulse oximetry: on cp room air is 100 %. Interpretation: normal. Test interpretation: by ED physician or midlevel provider: ECG, plain radiologic studies. Counseling: I had a detailed discussion with the patient and/or guardian regarding: the historical points, exam findings, and any diagnostic results supporting the discharge/admit diagnosis, lab results, radiology results. 22:57 Physician consultation: Saul Andres was called at 22:57, was contacted at 22:57, regarding admission, to the telemetry unit. patient's condition. 11/19 18:50 Order name: Basic Metabolic Panel cp 11/19 18:50 Order name: CBC with Diff cp 11/19 18:50 Order name: LFT's cp 11/19 18:50 Order name: Magnesium cp 11/19 18:50 Order name: NT PRO-BNP cp 11/19 18:50 Order name: PT-INR; Complete Time: 20:33 cp 11/19 18:50 Order name: Troponin HS cp 11/19 18:51 Order name: Basic Metabolic Panel EDMS 11/19 21:43 Interpretation: Normal except: GLUC 153; GFR 73. cp 11/19 18:51 Order name: CBC with Automated Diff; Complete Time: 20:33 EDMS 11/19 20:34 Interpretation: Normal except: MPV 7.4. cp 11/19 18:51 Order name: Liver (Hepatic) Function EDMS 11/19 19:27 Order name: Urine Microscopic Only; Complete Time: 20:33 cp 11/19 20:34 Interpretation: Normal except: UWBC 5-10; UBACT >50; SQEPI 10-20; AMORPH 3+. cp 11/19 20:30 Order name: Urine Culture EDCO 11/19 21:56 Order name: COVID-19 SARS RT PCR (Document "Date of Onset" if Symptomatic) la1 11/20 05:23 Order name: CBC with Automated Diff EDMS 11/19 18:50 Order name: XRAY Chest (1 view); Complete Time: 20:33 cp 11/19 19:10 Order name: CT Head Brain wo Cont; Complete Time: 20:33 cp 11/19 20:35 Interpretation: Report reviewed. cp 11/20 07:51 Order name: Comprehensive Metabolic Panel EDCO 11/20 07:51 Order name: Troponin High Sensitivity EDCO 11/20 07:51 Order name: Lipid Profile EDCO 11/20 07:51 Order name: T4 Free EDCO 11/20 07:51 Order name: Thyroid Stimulating Hormone EDCO 11/19 18:50 Order name: EKG; Complete Time: 18:51 cp 11/19 18:50 Order name: Cardiac monitoring; Complete Time: 18:53 cp 11/19 18:50 Order name: EKG - Nurse/Tech; Complete Time: 18:53 cp 11/19 18:50 Order name: IV Saline Lock; Complete Time: 19:18 cp 11/19 18:50 Order name: Labs collected and sent; Complete Time: 19:18 cp 11/19 18:50 Order name: O2 Per Protocol; Complete Time: 18:53 cp 11/19 18:50 Order name: O2 Sat Monitoring; Complete Time: 18:53 cp 11/19 19:27 Order name: Urine Dipstick-Ancillary (obtain specimen); Complete Time: 20:32 cp EC:11 Rate is 51 beats/min. Rhythm is regular. DE interval is normal. QRS interval is normal. cp QT interval is normal. Interpreted by me. Reviewed by me. 20:45 Rhythm is regular. DE interval is normal. QRS interval is normal. QT interval is cp normal. T waves are Inverted in leads III, aVF, V4, V5, V6. Interpreted by me. Reviewed by me. Administered Medications: 19:25 Drug: Meclizine 25 mg Route: PO; vc1 19:25 Drug: Tylenol 650 mg Route: PO; vc1 19:37 Drug: hydrALAZINE 10 mg Route: IVP; Site: right antecubital; vc1 20:45 Drug: NS 0.9% 250 ml Route: IV; Rate: bolus; Site: right antecubital; vc1 21:00 Follow up: IV Status: Completed infusion ss7 20:45 Drug: NS 0.9% 250 ml Route: IV; Rate: 125 ml/hr; Site: right antecubital; vc1 20:53 Drug: morphine 2 mg Route: IVP; Site: right antecubital; ss7 21:42 Follow up: Response: Pain is decreased ss7 20:53 Drug: Ondansetron 2 mg Route: IVP; Site: right antecubital; ss7 21:42 Follow up: Response: Nausea is increased ss7 21:41 Drug: Zofran (Ondansetron) 4 mg Route: IVP; Site: right antecubital; ss7 22:18 Follow up: Response: Nausea is decreased ss7 22:10 Drug: Aspirin Chewable Tablet 324 mg Route: PO; ss7 23:26 Follow up: Response: No adverse reaction ss7 22:11 Not Given (HR 55-60; informed BARBARA Tompkins; instructed to hold.): Metoprolol 25 mg PO once ss7 Disposition: 11/20 19:06 Co-signature as Attending Physician, Orestes Najera MD I agree with the assessment and kdr plan of care. Disposition Summary: 11/19/21 22:59 Hospitalization Ordered Hospitalization Status: Observation cp Provider: Vince Macdonald cp Condition: Stable cp Problem: new cp Symptoms: have improved cp Bed/Room Type: Standard cp Location: Telemetry/MedSurg (observation)(11/20/21 06:33) eb1 Room Assignment: 218(11/20/21 06:33) eb1 Diagnosis - Chest pain, unspecified cp - Hypertensive heart disease without heart failure cp Forms: - Medication Reconciliation Form cp - SBAR form cp Signatures: Dispatcher [employer] EDMS Orestes Najera MD MD kdr Attema, Lee, NETWORK AND THREAT SUPPORT SPECIALIST-C NETWORK AND THREAT SUPPORT SPECIALIST-Cla1 Yoel Tompkins PA PA cp Basinger, Emily, RN RN eb1 Isai Brennan, DO ms3 Kath Carlos RN RN vc1 Kristi Olvera, RN RN ss7 Leti Shultz, RN RN ag7 Corrections: (The following items were deleted from the chart) 11/19 21:43 20:34 Normal except: GLUC 153. [facility] 11/20 01:03 11/19 22:59 Telemetry/MedSurg (observation) [facility] 11/20 01:03 11/19 22:59 [facility] 11/20 06:33 01:03 [facility] ER HOLD eb1 eb1 06:33 01:03 ERHOLD- eb1 eb1
[2021-11-19 23:04] LABS: Magnesium 2.8 mg/dL (1.8-2.4)
[2021-11-20] MEDS ORDERED: MORPHINE 2 MG/ML SYR IV PRN (01:24)
[2021-11-20] MEDS ORDERED: ONDANSETRON 4 MG/2 ML VIAL IV PRN (01:24)
[2021-11-20 01:46] VITALS: BMI 20.5
[2021-11-20 05:12] LABS: Absolute Lymphocytes (CBC) 1.2 K/uL (0.7-4.9); Hematocrit 36.1 % (36.0-45.0); Lymphocytes % 16.7 % (15.3-44.8); MPV 7.5 fL (7.6-11.3); RBC Red Blood Cell Count 3.94 M/uL (3.86-4.86)
[2021-11-20 07:50] LABS: ALT/SGPT 19 U/L (12-78); AST/SGOT 19 U/L (15-37); Albumin 3.1 g/dL (3.4-5.0); Alkaline Phosphatase 103 U/L (45-117); BUN Blood Urea Nitrogen 13 mg/dL (7-18); Bicarbonate 26 mmol/L (21-32); Bilirubin Total 0.4 mg/dL (0.2-1.0); Glucose Level 99 mg/dL (74-106); HDL Cholesterol 78 mg/dL (40-60); LDL Cholesterol, Calculated 125 (<130); Protein, Total 5.9 g/dL (6.4-8.2); Sodium Level 138 mmol/L (136-145)
[2021-11-20] MEDS ORDERED: PNEUMOCOCCAL VACCINE 0.5 ML IMVAC ONE (08:00)
[2021-11-20] MEDS: ENOXAPARIN 40 MG/0.4 ML SQ SCH (08:39)
[2021-11-20] MEDS: ASPIRIN EC 81 MG TAB PO SCH (08:44)
[2021-11-20 08:52] VITALS: O2SAT 100
[2021-11-20] MEDS ORDERED: lisinopriL 5 MG TAB PO SCH (09:00)
--- NOTE | 2021-11-20 15:40 | P.PN ---
Subjective Date of Service: 11/20/21 Primary Care Provider: Dr. Singleton, neurology Dr. mcclure Chief Complaint: Chest pain Subjective: Improving (Patient is feeling better. Persistently) Physical Examination - Vital Signs Temperature: 97.3 F Blood Pressure: 127/58 Pulse: 54 Respirations: 16 Pulse Ox (%): 96 - Physical Exam General: In no apparent distress, Cooperative HEENT: Atraumatic, Normocephalic Respiratory: Clear to auscultation bilaterally, Normal air movement Cardiovascular: Regular rate/rhythm, Normal S1 S2 Gastrointestinal: Soft and benign, Non-distended, No tenderness Musculoskeletal: No clubbing, No swelling, No contractures Neurological: Normal speech, Normal affect - Studies Laboratory Data (last 24 hrs) 11/19/21 19:12: PT 10.0, INR 0.91 11/19/21 19:12: WBC 6.80, Hgb 13.2, Hct 39.0, Plt Count 194 11/19/21 19:12: Sodium 141, Potassium 4.4, BUN 16, Creatinine 0.77, Glucose 153 H, Magnesium 2.8 H, Total Bilirubin 0.3, AST 22, ALT 21, Alkaline Phosphatase 121 H Assessment And Plan - Current Problems (Diagnosis) (1) Dizziness Current Visit: Yes Status: Acute (2) Brain tumor Current Visit: Yes Status: Acute (3) Hypertension Current Visit: Yes Status: Acute Physician Review Additional Text: 11/20/21 15:38 Assessment Patient is a 76 year old Burkinan-speaking female with a known PMH of Brain tumor s/p resection, seizure disorder and hypertension. She presented with dizziness and elevated BP. Her SBP was reportedly in the 200's. ACS was ruled out. She was persistently bradycardic with a HR in the mid 50's. She is not on any rate- controlling medications. Cardiology evaluated the patient before her discharge. Bradycardia Dizziness Brain tumor HTN PLAN: Her bradycardia could be related to her Donepezil However, we'll have to rule out cardiac etiology She will stay for a stress test Unclear if she'll need a pacemaker Continue telemetry 11/20/21 15:44
[2021-11-20] MEDS ORDERED: ATORVASTATIN 40 MG TAB PO SCH (21:00)
[2021-11-20] MEDS ORDERED: DONEPEZIL HCL 5 MG TAB PO SCH (21:00)
[2021-11-20] MEDS ORDERED: HOME MED 1 EA UNK (Donepezil Hcl [Donepezil Hcl] 10 MG Tablet) PO SCH (21:00)
--- NOTE | 2021-11-20 21:07 | CON ---
Date of Consultation: 11/20/2021 Reason For Consultation: Chest pain and bradycardia. History Of Present Illness: A 76-year-old female, history of hypertension, seizure disorder, present ed for dizziness, chest pain, and elevated blood pressure. The patient initially came with high bloo d pressure and then in the ER started having chest pain with nausea and shortness of breath that last ed for few minutes. Pain resolved and troponin has been negative. On telemetry, she has been slight ly bradycardic with no active symptoms at the present time. Past Medical History: Seizure disorder, hypertension, brain mass. Past Surgical History: Craniotomy. Medications: Refer to reconciliation sheet for detailed list. Allergies: NO KNOWN DRUG ALLERGIES. Family History: No premature coronary artery disease or cancer. Social History: Does not smoke or drink. Does not use any drugs. Review of Systems: All systems reviewed are negative except as mentioned in the HPI. Physical Examination: Vital Signs: Reviewed. Head and Neck: Pupils are equal and reactive to light. Intact eye movements. No JVD. No cervical lymphadenopathy. Neck is supple. Thyroid is not enlarged. Lungs: Clear to auscultation bilaterally. No rhonchi, rales, or crackles. No accessory muscle use. Heart: Regular rate and rhythm. No extra sounds. Abdomen: Soft, nontender. Bowel sounds positive. No organomegaly. No masses or hernia. No rigidi ty or rebound. Extremities: No clubbing or cyanosis. Intact pulses. Skin: No rashes or nodules. Neurologic: Alert, awake. No acute focal deficits appreciated. Lymph Nodes: No cervical or axillary lymphadenopathy. Investigations: Hemoglobin was 12.4. Creatinine is 0.63. Troponins x3 are negative. Assessment And Recommendations: 1.Chest pain with 3 negative troponins and she is bradycardic. Recommend a Lexiscan nuclear stress test and an echocardiogram to further evaluate. 2.Bradycardia. We will monitor on telemetry overnight and we will obtain an echocardiogram and a st ress test as outlined above. Thank you for the consult. /ROLAND Voice ID: [id number] Report ID: [id number]
[2021-11-20] MEDS: levETIRAcetam 500 MG TAB PO SCH (21:09)
[2021-11-20] MEDS: carBAMazepine 200 MG TAB PO SCH (21:10)
[2021-11-21] MEDS ORDERED: REGADENOSON 0.4 MG/5 ML SYR IV ONE (07:11)
[2021-11-21] MEDS ORDERED: LOSARTAN POTASSIUM 50 MG TABLET PO SCH (09:00)
--- NOTE | 2021-11-21 09:17 | RAD REPORT ---
EXAM DESCRIPTION: NM - Rest Stress Cardiac Imaging - 11/21/2021 9:02 am CLINICAL HISTORY: Chest pain COMPARISON: None. TECHNIQUE: The patient was administered 10.6 mCi of Tc 99m Sestamibi prior to resting SPECT imaging of the heart. The patient was then administered 30.8 mCi of Tc 99m Sestamibi following exercise or ph armacologic stress. Multiplanar SPECT images were reviewed. FINDINGS: The end diastolic volume is 77 ml, the end systolic volume is 27 ml, and the ejection frac tion is 65 %. Physiologic distribution of the radiopharmaceutical through the myocardium is noted. No stress induce d ischemic defect is seen to suggest stress induced ischemia. No fixed defect is seen to suggest hibe rnating myocardium or scarred myocardium. The slight decrease in activity along the inferior wall do es not change between rest and stress imaging. This is believed to be diaphragm attenuation artifact. IMPRESSION: No stress induced ischemia or other suspicious findings. End-diastolic volume is normal at 77 mL with a 65% ejection fraction.
[2021-11-21] MEDS: carBAMazepine 200 MG TAB PO SCH ×2 (09:32→14:11)
[2021-11-21] MEDS: ASPIRIN EC 81 MG TAB PO SCH (09:33)
[2021-11-21] MEDS: ENOXAPARIN 40 MG/0.4 ML SQ SCH (09:33)
[2021-11-21] MEDS: levETIRAcetam 500 MG TAB PO SCH (09:33)
--- NOTE | 2021-11-21 14:33 | P.DS ---
Admission Date: 11/19/21 Discharge Date: 11/21/21 Primary Care Provider: Dr. Singleton, neurology Dr. mcclure Disposition: ROUTINE DISCHARGE Discharge Condition: GOOD Reason for Admission: Chest pain - Problems (1) Dizziness Current Visit: Yes Status: Acute (2) Brain tumor Current Visit: Yes Status: Acute (3) Hypertension Current Visit: Yes Status: Acute Hospital Course: Patient is a 76 year old French-speaking female with a known PMH of Brain tumor s/p resection, seizure disorder and hypertension. She presented with dizziness and elevated BP. Her SBP was in the 200's. ACS was ruled out. She was persistently bradycardic with a HR in the mid 50's. She is not on any rate- controlling medications except for donepezil. Otherwise, she was asymptomatic. Her nuclear stress test was negative. Manuela was advised to closely monitor her BP at home. Daughter was at bedside when the instructions were given. Vital Signs/Physical Exam: Temp Pulse Resp BP Pulse Ox 97.7 F 56 14 128/54 L 98 11/21/21 12:00 11/21/21 12:00 11/21/21 12:00 11/21/21 12:00 11/21/21 12:00 General: Alert, In no apparent distress, Cooperative HEENT: Atraumatic, Normocephalic Respiratory: Clear to auscultation bilaterally, Normal air movement Cardiovascular: Regular rate/rhythm, Normal S1 S2, Other (bradycardic) Musculoskeletal: No clubbing, No swelling, No contractures, No erythema Neurological: Normal speech, Normal affect Laboratory Data at Discharge: WBC 7.30 K/uL (4.3-10.9) 11/20/21 04:18 Hgb 12.4 g/dL (12.0-15.0) 11/20/21 04:18 Hct 36.1 % (36.0-45.0) 11/20/21 04:18 Plt Count 191 K/uL (152-406) 11/20/21 04:18 PT 10.0 SECONDS (9.5-12.5) 11/19/21 19:12 INR 0.91 11/19/21 19:12 Sodium 138 mmol/L (136-145) 11/20/21 04:18 Potassium 4.0 mmol/L (3.5-5.1) 11/20/21 04:18 BUN 13 mg/dL (7-18) 11/20/21 04:18 Creatinine 0.63 mg/dL (0.55-1.3) 11/20/21 04:18 Glucose 99 mg/dL (74-106) 11/20/21 04:18 Magnesium 2.8 mg/dL (1.8-2.4) H 11/19/21 19:12 Total Bilirubin 0.4 mg/dL (0.2-1.0) 11/20/21 04:18 AST 19 U/L (15-37) 11/20/21 04:18 ALT 19 U/L (12-78) 11/20/21 04:18 Alkaline Phosphatase 103 U/L (45-117) 11/20/21 04:18 Triglycerides 132 mg/dL (<150) 11/20/21 04:18 Cholesterol 229 mg/dL (<200) H 11/20/21 04:18 HDL Cholesterol 78 mg/dL (40-60) H 11/20/21 04:18 Cholesterol/HDL Ratio 2.94 11/20/21 04:18 Home Medications: Donepezil HCl 10 mg PO BEDTIME 12/01/12 Carbamazepine [Tegretol] 200 mg PO TID 11/20/21 Losartan Potassium [Cozaar*] 50 mg PO DAILY 11/20/21 levETIRAcetam [Keppra*] 1,500 mg PO BID 11/20/21 Aspirin [Aspirin EC 81 MG] 81 mg PO DAILY #30 tablet. 11/21/21 Atorvastatin Calcium 40 mg PO BEDTIME #30 tablet 11/21/21 New Medications: Aspirin [Aspirin EC 81 MG] 81 mg PO DAILY #30 tablet. Atorvastatin Calcium 40 mg PO BEDTIME #30 tablet Followup: Angelika Singleton DO [Primary Care Provider] -
[2021-11-21 16:03] VITALS: BP 125/50; TEMP 97.8
--- NOTE | 2021-11-24 08:30 | ECHO ---
HEIGHT: 5 ft 0 in WEIGHT: 105 lb 0.099 oz DATE OF STUDY: 11/21/[address]: Saul Andres NP 2-DIMENSIONAL: YES M.MODE: YES DOPPLER: YES COLOR FLOW: YES TDS: NO PORTABLE: NO DEFINITY: NO BUBBLE STUDY: NO DIAGNOSIS: CHEST PAIN CARDIAC HISTORY: CATHERIZATION: NO SURGERY: NO PROSTHETIC VALVE: NO PACEMAKER: NO MEASUREMENTS (cm) DIASTOLIC (NORMALS) SYSTOLIC (NORMALS) IVSd 0.9 (0.6-1.2) LA Diam 2.3 (1.9-4.0) LVEF 59% LVIDd 3.9 (3.5-5.7) LVIDs 2.7 (2.0-3.5) %FS 31% LVPWd 1.0 (0.6-1.2) Ao Diam 2.5 (2.0-3.7) 2 DIMENSIONAL ASSESSMENT: RIGHT ATRIUM: NORMAL LEFT ATRIUM: NORMAL RIGHT VENTRICLE: NORMAL LEFT VENTRICLE: NORMAL TRICUSPID VALVE: NORMAL MITRAL VALVE: MILD MITRAL RURGITATION PULMONIC VALVE: MILD PULMONARY INSUFFICIENCY AORTIC VALVE: MILD AORTIC INSUFFICIENCY PERICARDIAL EFFUSION: NONE AORTIC ROOT: NORMAL LEFT VENTRICULAR WALL MOTION: NORMAL. DOPPLER/COLOR FLOW: SEE BELOW. COMMENTS: NORMAL LEFT VENTRICULAR EJECTION FRACTION 55-60%. NORMAL WALL MOTION. MILD DIASTOLIC DYSFUNCTION. MILD MITRAL REGURGITATION. MILD AORTIC INSUFFICIENCY, MILD PULMONARY INSUFFICIENCY. TECHNOLOGIST: SHARRI VAZ
--- NOTE | 2021-11-24 08:33 | EKG ---
Test Date: 2021-11-19 Test Time: 20:42:33 Radar Technician: RACHNA MEASUREMENT RESULTS: Intervals: Rate: 62 CT: 150 QRSD: 76 QT: 408 QTc: 414 [place]: P: 73 CT: 150 QRS: 79 T: -48 INTERPRETIVE STATEMENTS: Normal sinus rhythm ST & T wave abnormality, consider inferior ischemia ST & T wave abnormality, consider anterolateral ischemia Abnormal ECG Compared to ECG 11/19/2021 18:58:51 Sinus bradycardia no longer present ST (T wave) deviation still present Possible ischemia still present Electronically Signed On 11-24-21 08:24:11 CDT by Balwinder Serna
--- NOTE | 2021-11-24 08:34 | EKG ---
Test Date: 2021-11-19 Test Time: 18:58:51 Tv Host: TETO MEASUREMENT RESULTS: Intervals: Rate: 51 VA: 170 QRSD: 80 QT: 448 QTc: 412 [place]: P: 64 VA: 170 QRS: 76 T: -64 INTERPRETIVE STATEMENTS: Sinus bradycardia ST & T wave abnormality, consider inferolateral ischemia Abnormal ECG Compared to ECG 09/10/2021 11:57:37 No significant changes Electronically Signed On 11-24-21 08:24:17 CDT by Balwinder Serna
--- NOTE | 2021-11-24 08:59 | TREADPHA ---
DX: CHEST PAIN Date of Study: 11/21/21 Ht: 5' 0 " Wt: 105 lb 0.099 oz Consulting Physician: RAJWINDER MEDICATIONS: ASPIRING, LIPITOR, TEGRETOL, LOVENOX, KEPPRA, COZAAR, MORPHINE, ZOFRAN HISTORY: 76 YEAR OLD FEMALE WITH COMPLAINTS OF CHEST PAIN. HISOTRY OF HYPERLIPIDEMIA, NON-SMOKER, NON-DRINKER PHYSICIAL EXAMINATION: RESTING B.P.: 123/58 RESTING H.R.: 53 RESTING EKG: NORMAL SINUS RHYTHM WITH T WAVE DEPRESSION IN INFERO-LATERAL LEADS PROTOCOL: LEXISCAN EXERCISE TIME: 3:30 B.P. AT PEAK STRESS: 132/57 IMPRESSION: LEXISCAN INJECTED. CARDIOLITE INJECTED - SEE NUCLEAR MEDICINE REPORT. PATIENT DENIES CHEST PAIN. NO SUPRA VENTRICULAR TACHYCARDIA, PREMATURE ATRIAL COMLEXES OR PREMATURE VENTRICULAR COMLEXES NOTED. NO EKG CHANGES WITH LEXISCAN
== END 2021-11-21 16:18 | disposition home or self-care (01) ==
LOC: ER 17:38 → ERHOLD 23:13 → 2ND 11-20 07:32
PROVIDERS: ADMIT Internal Medicine; ATTEND Internal Medicine
DX: R07.9 Chest pain, unspecified (principal); R00.1 Bradycardia, unspecified; R42 Dizziness and giddiness; D49.6 Neoplasm of unspecified behavior of brain; I10 Essential (primary) hypertension; G40.909 Epilepsy, unspecified, not intractable, without status epilepticus; Z98.890 Other specified postprocedural states; Z20.822 Contact with and (suspected) exposure to COVID-19
CPT/HCPCS: 93005 ×2; 93017; 93306; 85025 ×2; 87086; 80048; 36415; 83735; 85610; 80061; 80076; 84443; 81015; 84484 ×3; 84439; 80053; 83880; 70450; 71045; 78452; 96375; 96374; 99285; U0003; J0360; J1650 ×2; J2270; J2785; J7050; J2405 ×2; A9500; G0378 ×3; 87088; J8597

== ENCOUNTER 2024-02-01 09:50 | Emergency (ER) | payer OTHER ==
--- NOTE | 2024-02-01 10:43 | RAD REPORT ---
EXAM DESCRIPTION: Shoulder Right 2 View - 02/01/2024 10:27 am CLINICAL HISTORY: PAIN COMPARISON: No comparisons TECHNIQUE: Internal and external rotation views of the right shoulder were obtained. FINDINGS: There is no fracture or dislocation. AC joint shows mild degenerative changes. No acute or suspicious findings. IMPRESSION: No acute osseus abnormality. Mild right AC joint degenerative change.
--- NOTE | 2024-02-01 11:40 | EDPHYS ---
Physician Documentation [facility] Name: Jolanta Stockton Age: 79 yrs Sex: Female : 1945 Arrival Date: 02/01/2024 Time: 09:50 Bed 12 Private MD: ED Physician Golden Macdonald HPI: 01/31 09:59 This 79 yrs old Female presents to ER via Ambulatory with complaints of rn Shoulder Pain. 09:59 The patient or guardian complains of pain, that is acute. right shoulder. Onset: The rn symptoms/episode began/occurred this morning. Modifying factors: the symptoms are alleviated by remaining still, The symptoms are aggravated by Lifting arm. Severity of symptoms: At their worst the symptoms were moderate, in the emergency department the symptoms are unchanged. The patient has not experienced similar symptoms in the past. 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 No fall or direct trauma. No history of dislocation. No fever or chills.. Historical: - Allergies: :58 No Known Allergies; ap3 - PMHx: 09:58 Hypertensive disorder; Seizures; ap3 - Immunization history:: Client reports receiving the 2nd dose of the Covid vaccine. - Infectious Disease History:: Denies. - Social history:: Smoking status: Patient denies any tobacco usage or history of. - Family history:: not pertinent. - Hospitalizations: : No recent hospitalization is reported. ROS: 09:59 Constitutional: Negative for fever, chills, and weight loss, Neck: Negative for injury, rn pain, and swelling, Cardiovascular: Negative for chest pain, palpitations, and edema, Respiratory: Negative for shortness of breath, cough, wheezing, and pleuritic chest pain, MS/Extremity: Positive for right shoulder pain Neuro: Negative for headache, weakness, numbness, tingling, and seizure, Exam: 09:59 Constitutional: This is a well developed, well nourished patient who is awake, alert, rn and in no acute distress. Neck: Trachea midline, no masses palpated, and no cervical lymphadenopathy. Supple, full range of motion without nuchal rigidity, or vertebral point tenderness. No Meningismus. Cardiovascular: Regular rate and rhythm. No pulse deficits. MS/ Extremity: Pulses equal, no cyanosis. Neurovascular intact. Can touch opposite shoulder without assistance. Mainly painful range of motion with elevation of arm above head. No weakness. No discoloration. Neuro: Awake and alert, GCS 15, oriented to person, place, time, and situation. Cranial nerves II-XII grossly intact. Motor strength 5/5 in all extremities. Sensory grossly intact. Cerebellar exam normal. Normal gait. Vital Signs: 09:56 BP 182 / 57; Pulse 59; Resp 18; Temp 98.1; Pulse Ox 100% ; Weight 47.63 kg; ap3 MDM: 09:53 Patient medically screened. rn 11:39 Differential diagnosis: DJD, tendonitis. Data reviewed: vital signs, nurses notes, rn radiologic studies, plain films, and as a result, I will discharge patient. Counseling: I had a detailed discussion with the patient and/or guardian regarding the historical points, exam findings, and any diagnostic results supporting the discharge/admit diagnosis, radiology results, the need for outpatient follow up, to return to the emergency department if symptoms worsen or persist or if there are any questions or concerns that arise at home. Special discussion: I discussed with the patient/guardian in detail that at this point there is no indication for admission to the hospital. It is understood, however, that if the symptoms persist or worsen the patient needs to return immediately for re-evaluation. 01/31 09:58 Order name: MATT Shoulder RIGHT 2 view; Complete Time: 10:46 rn Administered Medications: No medications were administered Disposition Summary: 02/01/24 11:40 Discharge Ordered Notes: Location: Home rn Problem: new rn Symptoms: are unchanged rn Condition: Stable rn Diagnosis - Rotator cuff tendinitis rn Followup: rn - With: Private Physician - When: As needed - Reason: Recheck today's complaints, Re-evaluation by your physician Discharge Instructions: - Discharge Summary Sheet rn - Rotator Cuff Tendinitis rn - Tendinitis rn Forms: - Medication Reconciliation Form rn - Antibiotic rn clinical trials - Prescription Opioid Use rn - Patient Portal Instructions rn - Leadership Thank You Letter rn - Work release form ap3 Prescriptions: - Tramadol 50 mg Oral Tablet - take 1 tablet ORAL route every 8 hours as needed; 12 tablet; Refills: 0, rn Product Selection Permitted Signatures: Dispatcher [employer] Golden Darling MD MD rn Susan Queen, MYA RN ap3
--- NOTE | 2024-02-01 11:40 | ER ---
Nurse's Notes [facility] Name: Jolanta Stockton Age: 79 yrs Sex: Female : 1945 Arrival Date: 02/01/2024 Time: 09:50 Bed 12 Private MD: Diagnosis: Rotator cuff tendinitis Presentation: 01/31 09:56 Chief complaint: Patient states: she was ironing today at work, when she felt a pop in ap3 her right shoulder followed by shoulder pain. Coronavirus screen: At this time, the client does not indicate any symptoms associated with coronavirus-19. Ebola Screen: No symptoms or risks identified at this time. Initial Sepsis Screen: Does the patient meet any 2 criteria? No. Patient's initial sepsis screen is negative. Does the patient have a suspected source of infection? No. Patient's initial sepsis screen is negative. Risk Assessment: Do you want to hurt yourself or someone else? Patient reports no desire to harm self or others. Onset of symptoms was February 01, 2024. 09:56 Method Of Arrival: Ambulatory ap3 09:56 Acuity: JUDITH 4 ap3 Triage Assessment: 09:58 General: Appears uncomfortable, Behavior is calm, cooperative, appropriate for age. ap3 Pain: Complains of pain in anterior aspect of right shoulder Pain began suddenly. Neuro: Level of Consciousness is awake, alert, obeys commands, Oriented to person, place, time, situation. Cardiovascular: Patient's skin is warm and dry. Respiratory: Airway is patent Respiratory effort is even, unlabored, Respiratory pattern is regular, symmetrical. Musculoskeletal: Reports pain in anterior aspect of right shoulder. Historical: - Allergies: 09:58 No Known Allergies; ap3 - PMHx: 09:58 Hypertensive disorder; Seizures; ap3 - Immunization history:: Client reports receiving the 2nd dose of the Covid vaccine. - Infectious Disease History:: Denies. - Social history:: Smoking status: Patient denies any tobacco usage or history of. - Family history:: not pertinent. - Hospitalizations: : No recent hospitalization is reported. Screenin:59 Abuse screen: Denies threats or abuse. Nutritional screening: No deficits noted. ap3 Tuberculosis screening: No symptoms or risk factors identified. 11:58 [facility] ED Fall Risk Assessment (Adult) History of falling in the last 3 months, ap3 including since admission No falls in past 3 months (0 pts) Confusion or Disorientation No (0 pts) Intoxicated or Sedated No (0 pts) Impaired Gait No (0 pts) Mobility Assist Device Used No (0 pt) Altered Elimination No (0 pt) Score/Fall Risk Level 0 - 2 = Low Risk Oriented to surroundings, Maintained a safe environment, Educated pt \T\ family on fall prevention, incl call for assistance when getting out of bed, Assessed \T\ reinforced patient's understanding of fall precautions, Provided non-skid footwear, Hourly rounding (assess needs \T\ fall precautionary measures) done, Used ambulatory aids as needed (educated on \T\ assisted with), Used gait belt as appropriate. Vital Signs: 09:56 BP 182 / 57; Pulse 59; Resp 18; Temp 98.1; Pulse Ox 100% ; Weight 47.63 kg; ap3 ED Course: 09:53 Patient arrived in ED. im 09:53 Golden Macdonald MD is Attending Physician. rn 09:58 Triage completed. ap3 09:59 Arm band placed on left wrist. ap3 10:29 XRAY Shoulder RIGHT 2 view In Process Unspecified. EDMS 11:57 Patient has correct armband on for positive identification. Provided Education on: ap3 discharge istructions. 11:57 No provider procedures requiring assistance completed. Patient did not have IV access ap3 during this emergency room visit. Administered Medications: No medications were administered Medication: 11:58 VIS not applicable for this client. ap3 Outcome: 11:40 Discharge ordered by . rn 11:57 Discharged to home ambulatory, ap3 11:57 Condition: good 11:57 Discharge instructions given to patient, Instructed on discharge instructions, follow up and referral plans. medication usage, Demonstrated understanding of instructions, follow-up care, medications, Prescriptions given X 1, 11:58 Patient left the ED. ap3 Signatures: Dispatcher [employer] EDMS Golden Macdonald MD MD rn Prokisch, Amanda, RN RN ap3 Toya Cyr im
[2024-02-01 12:22] VITALS: BP 182/57; TEMP 98.1; O2SAT 100
== END 2024-02-01 11:58 | disposition home or self-care (01) ==
LOC: ER 09:50
DX: M75.101 Unspecified rotator cuff tear or rupture of right shoulder, not specified as traumatic (principal)
CPT/HCPCS: 99283

== ENCOUNTER 2024-12-01 10:53 | Emergency (ER) | payer MEDICARE, OTHER ==
--- OUTSIDE RECORDS SUMMARY | 2024-12-01 11:00 | XMS REPORT | Continuity of Care Document ---
Author Name Unknown Address [address] [place] [address] [facility] Address [address] [place] [address] Care Team Providers Care Manager Floor Name Role Phone ALMANZA, NA Primary Care Physician Unavailab donnie ALMANZA, Angelika L Attending Clinician Unavailable MARCIA ROMERO Attending Clinician Unavailable WILFREDO STEELE Attending Clinician Unavaila ble LAB90 Attending Clinician Unavailable MARAL CORDOVA Attending Clinician Unavailable ANITA GARCIA Attending Clinician Unavailab ARELY Raza Attending Clinician Unavailable LAVONNE RIVERA Attending Clinician Unavailable LAB51 Attending Clinician Unavailable SIMON LOVE Attending Clinician Unavailab donnie RADIOLOGY, DEPT Attending Clinician Unavailable Elo Shin MD Attending Clinician [phone] Doctor Unassigned, [place] Attending Clinician U navailable ELO SHIN Attending Clinician Unavailable Ajibade_O_AH Attending Clinician Unavailable Ige-Odunuga_J_AH Attending Clinician Unavailable Ajibade_O_AH Admitting Clinician Unavailable Ige-Ever_J_AH Admitting Clinician Unavailable Payers Payer Name Policy Type Policy Number Effective Date Expirati on Date Source [facility] TEXAN[employer] CLASSIC SIMPLE 7 [id number] 2024 00:00:00 MIGUEL [employer]OR[employer] SELECT PLAN HMO 7 [id number] 2022 00:00:00 [facility] C[facility] [id number] 2020 00:00:00 [facility] C1 [id number] 2020 00:00:00 [facility] C1 [id number] 2020 00:00:00 [facility] [employer] [place] (MEDICARE REPLACEMENT/ADV ANTAGE - HMO) [id number] 2019 00:00:00 Problems Condition Name Condition Details Condition Category Status Onset Date Resolution Date Last Treatment Date Treating Clinician Comments Source [facility] adult exam Well adult exam Disease Active 05-12 00:00: 00 Vijaya Seybold - Externa l Prediabete s Prediabete s Disease Active 02-08 00:00: 00 Vijaya Seybold - Externa l Chronic pain of both knees Chronic pain of both knees Disease Active 02-08 00:00: 00 Vijaya Seybold - Externa l HTN (hypertens ion) HTN (hypertens ion) Disease Active 01-07 00:00: 00 Vijaya Seybold - Externa l Hyperlipid emia Hyperlipid emia Disease Active 01-07 00:00: 00 Vijaya Seybold - Externa l Seizure disorder (multi HCC) Seizure disorder (multi HCC) Disease Active 01-07 00:00: 00 Vijaya Seybold - Externa l History of brain surgery History of brain surgery Disease Active 01-07 00:00: 00 Vijaya Seybold - Externa l Thyroid nodule Thyroid nodule Disease Active 01-07 00:00: 00 Overview: Formattin g of this note might be different from the original. Thyroid ultrasoun d done 12/04/2022 showed dominant mixed cystic and solid TR 3.8 cm left lobe nodule. 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 Disease Active - 00:00: 00 [facility] Transient visual loss Transient visual loss Disease Active - 00:00: 00 [facility] [id number] Osteoarthr itis of multiple joints, unspecifie d osteoarthr itis type Problem [facility] [id number] Primary hypertensi on Problem [facility] [id number] Other chronic pain Problem [facility] [id number] Lumbago with sciatica, left side Problem [facility] [id number] 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 Problem [facility] [id number] Meningioma Problem Com [facility] [id number] Tear of right rotator cuff, unspecifie d tear extent, unspecifie d whether traumatic Problem [facility] History of benign brain tumor History of benign brain tumor Disease Active Vijaya welch Dementia (disorder) Dementia (disorder) Active Problem 04/19/2023 [facility] Problem Active 2023-04-19 01:30:07 Mao Waldrop Benign neoplasm of meninges (disorder) Benign neoplasm of meninges (disorder) Active Problem 04/19/2023 [facility] Problem Active 2023-04-19 01:30:07 Mao Waldrop Lumbar radiculopa thy (disorder) Lumbar radiculopa thy (disorder) Active Problem 04/19/2023 [facility] [place] Problem Active 2023-04-19 01:30:07 Mao Waldrop Allergies, Adverse Reactions, Alerts Allergy Name Allergy Type Status Severity Reaction(s) Onset Date Inactive Date Treating Clinician Comments Source No Known Drug Allergie s Propensi ty to adverse reaction s Active 09-07 00:00: 00 [facility] NO KNOWN DRUG ALLERGIE S Drug Class Active 09-07 00:00: 00 [facility] No Known Medicati on Allergie s No Known Medicati on Allergie s Active Mao Waldrop Social History Social Habit Start Date Stop Date Quantity Comments Source History of Tobacco Use [facility] Gender identity Marlene Caldwell - External Sexual orientation Jorje Caldwell - External Alcoholic beverage intake 2024-05-12 00:00:00 2024-05-12 00:00:00 Ex-drinker (finding) Vijaya Caldwell - External Alcohol intake 2023-11-10 00:00:00 2023-11-10 00:00:00 Ex-drinker (finding) Vijaya Caldwell - External History of Social function 2023-05-24 00:00:00 2023-05-24 00:00:00 Vijaya Caldwell - External Tobacco use and exposure 2023-01-07 00:00:00 2023-01-07 00:00:00 Smokeless tobacco non-user Vijaya Caldwell - External Education 2023-01-07 00:00:00 2023-01-07 00:00:00 9 Vijaya Caldwell - External Exposure to SARS-CoV-2 (event) 2021-12-29 00:00:00 2022-01-08 08:04:00 Not sure [facility] Sex assigned at 1945 00:00:00 1945 00:00:00 Vijaya Caldwell - External Smoking Status Start Date Stop Date Source Tobacco smoking consumption unknown Vijaya Caldwell - External Never smoked tobacco Vijaya Seybold - External Medications Ordered Medication Name Filled Medication Name Start Date Stop Date Current Medication? Ordering Clinician Indication Dosage Frequency Signature (SIG) Comments Components Source BUPivacaine HCl BUPivacaine HCl 05-25 00:00: 00 No 5mL [facility] Kenalog (Triamcinol one) Kenalog (Triamcinol one) 05-25 00:00: 00 No 1mL [facility] Cholecalcif allison (Vitamin D3) 50 MCG (2000 UT) oral Capsule 05-12 14:29: 07 Yes 2000U QD Take 1 capsule (2,000 units total) by mouth daily. Vijaya welch Levetiracet am 500 MG oral Tablet 04-14 00:00: 00 Yes [id number] 1000mg Q.5D Take 2 tablets (1,000 mg total) by mouth 2 times daily. Vijaya welch Calcium Carb-Cholec alciferol (Calcium 1000 + D) 1000-20 MG-MCG oral Tablet 11-09 14:30: 04 Yes [id number] 200mg Take 200 mg by mouth 3 times daily Vijaya welch Atorvastati n Calcium 40 MG oral Tablet 11-09 00:00: 00 Yes [id number] 40mg Take 1 tablet (40 mg total) by mouth nightly. Vijaya welch Carbamazepi ne 200 MG oral Tablet 11-09 00:00: 00 Yes [id number] 200mg Take 1 tablet (200 mg total) by mouth 3 times daily. Vijaya welch Levetiracet am 500 MG oral Tablet 11-09 00:00: 00 Yes [id number] 500mg Take 1 tablet (500 mg total) by mouth 2 times daily. Vijaya welch Losartan Potassium (COZAAR) 50 MG oral Tablet 11-09 00:00: 00 Yes [id number] 50mg Take 1 tablet (50 mg total) by mouth daily. Vijaya welch DONEPEZIL HYDROCHLORI DE 10 MG oral Tablet 11-09 00:00: 00 Yes [id number] 10mg QD Take 1 tablet (10 mg total) by mouth nightly. Vijaya welch Calcium Carb-Cholec alciferol (Calcium 1000 + D) 1000-20 MG-MCG oral Tablet 2022-09 2-12 14:16: 54 Yes [id number] 200mg Take 200 mg by mouth 3 times daily Vijaya welch Acetaminoph en-Codeine 300-30 MG oral Tablet 2022-09 0- 00:00: 00 08-10 00:00 :00 No TAKE 1 TABLET BY MOUTH TWICE DAILY FOR 14 DAYS NEEDED Vijaya welch levETIRAcet am 500 mg oral tablet 811 14:49: 00 Yes = 2 tab, PO, BID, # 360 tab, 0 Refill(s), Pharmacy: [facility] #[id number], 144.78, cm, 01/18/23 15:03:00 CDT, Height, 46.818, kg, 01/18/23 15:03:00 CDT, Weight Cotyoria rebekah RasmussenBenjie carBAMazepi ne 200 mg oral tablet 04-15 22:33: 00 Yes = 1 tab, PO, TID, # 90 tab, 1 Refill(s), Pharmacy: [facility] #[id number], 144.78, cm, 01/18/23 15:03:00 CDT, Height, 46.818, kg, 01/18/23 15:03:00 CDT, Weight [place] donepezil 10 mg oral tablet 04-15 22:33: 00 Yes = 1 tab, PO, Daily, # 30 tab, 1 Refill(s), Pharmacy: [facility] #[id number], 144.78, cm, 01/18/23 15:03:00 CDT, Height, 46.818, kg, 01/18/23 15:03:00 CDT, Weight Cotyoria rebekah Waldrop Calcium Carb-Cholec alciferol (Calcium 1000 + D) 1000-20 MG-MCG oral Tablet 6-05 14:31: 45 Yes [id number] 200mg Take 200 mg by mouth 3 times daily Vijaya welch Calcium Carb-Cholec alciferol (Calcium 1000 + D) 1000-20 MG-MCG oral Tablet 01-27 13:25: 15 Yes [id number] 200mg Take 200 mg by mouth 3 times daily Vijaya welch Donepezil HCl 10 MG/DAY transdermal PATCH WEEKLY 01-07 09:56: 57 01-07 00:00 :00 No 1{tbl} 1 tablet by other route at bedtime Vijaya welch Cholecalcif allison 50 MCG (2000 UT) oral Capsule 01-07 09:56: 57 01-07 00:00 :00 No 1{capsu le} 1 capsule every 24 hours Vijaya welch predniSONE (DELTASONE) 10 MG oral tablet 01-07 09:56: 57 01-07 00:00 :00 No every 24 hours Vijaya welch Calcium Carb-Cholec alciferol (Calcium 1000 + D) 1000-20 MG-MCG oral Tablet 01-07 09:55: 45 Yes [id number] 200mg Take 200 mg by mouth 3 times daily Vijaya welch Levetiracet am 500 MG oral Tablet 01-07 00:00: 00 11-09 00:00 :00 No [id number] 500mg Take 1 tablet (500 mg total) by mouth 2 times daily Vijaya welch DONEPEZIL HYDROCHLORI DE 10 MG oral Tablet 01-07 00:00: 00 11-09 00:00 :00 No [id number] 10mg Take 1 tablet (10 mg total) by mouth nightly Vijaya welch Losartan Potassium (COZAAR) 50 MG oral Tablet 01-07 00:00: 00 11-09 00:00 :00 No [id number] 50mg Take 1 tablet (50 mg total) by mouth daily Vijaya welch Atorvastati n Calcium 40 MG oral Tablet 01-07 00:00: 00 11-09 00:00 :00 No [id number] 40mg Take 1 tablet (40 mg total) by mouth nightly Vijaya welch Carbamazepi ne 200 MG oral Tablet - 00:00: 00 11-09 00:00 :00 No [id number] 200mg Take 1 tablet (200 mg total) by mouth 3 times daily Vijaya welch Carbamazepi ne 200 MG oral Tablet - 00:00: 00 Yes [id number] 200mg Take 1 tablet (200 mg total) by mouth 3 times daily Vijaya welch Losartan Potassium (COZAAR) 50 MG oral Tablet 12-16 00:00: 00 Yes [id number] 50mg Take 1 tablet (50 mg total) by mouth daily Vijaya welch Atorvastati n Calcium (Lipitor) 40 MG oral Tablet 12-16 00:00: 00 Yes [id number] 40mg Take 1 tablet (40 mg total) by mouth daily Vijaya welch DONEPEZIL HYDROCHLORI DE 10 MG oral Tablet 12-16 00:00: 00 Yes [id number] 10mg Take 1 tablet (10 mg total) by mouth nightly Vijaya welch Levetiracet am 500 MG oral Tablet 12-16 00:00: 00 Yes [id number] 1000mg Take 2 tablets (1,000 mg total) by mouth 2 times daily Vijaya welch Acetaminoph en-Codeine #3 300-30 MG oral Tablet 2-07 00:00: 00 01-07 00:00 :00 No TAKE 1 TABLET BY MOUTH TWICE DAILY FOR 21 DAYS Vijaya welch [place] Low Dose Aspirin 81 mg oral delayed release tablet 05-21 19:04: 00 Yes 81 mg = 1 tab, PO, Daily, 0 Refill(s) Mao Waldrop losartan 50 mg oral tablet 05-21 19:03: 00 Yes 50 mg = 1 tab, PO, Daily, # 90 tab, 1 Refill(s) Mao Waldrop atorvastati n 40 mg oral tablet 05-21 19:03: 00 Yes 40 mg = 1 tab, PO, Bedtime, # 90 tab, 1 Refill(s) Mao Waldrop Losartan Potassium (COZAAR) 50 MG oral Tablet 05-21 00:00: 00 01-07 00:00 :00 No 50 mg = 1 tab, PO, Daily, # 90 tab, 1 Refill(s) Vijaya welch levETIRAcet am 500 mg oral tablet 04-30 23:28: 00 Yes 1,000 mg = 2 tab, PO, BID, # 360 tab, 1 Refill(s), Pharmacy: [facility] #[id number], 144.78, cm, 07/25/21 15:16:00 TABLEMAN, Height, 45.909, kg, 07/25/21 15:16:00 TABLEMAN, Weight Mao Waldrop Levetiracet am 500 MG oral Tablet 04-30 00:00: 00 01-07 00:00 :00 No 1,000 mg = 2 tab, PO, BID, # 360 tab, 1 Refill(s), Pharmacy: [facility] #[id number], 144.78, cm, 07/25/21 15:16:00 TABLEMAN, Height, 45.909, kg, 07/25/21 15:16:00 TABLEMAN, Weight Vijaya Javi welch levETIRAcet am 500 mg oral tablet 04-29 15:47: 00 No 1,000 mg = 2 tab, PO, BID, X 30 day, # 120 tab, 3 Refill(s), Pharmacy: [facility] #[id number], 144.78, cm, 07/25/21 15:16:00 TABLEMAN, Height, 45.909, kg, 07/25/21 15:16:00 TABLEMAN, Weight Mao Waldrop Aspirin (Aspirin 81) 81 MG oral Chewable Tablet 03-06 00:00: 00 Yes [id number] 81mg 1 tablet (81 mg total) every 24 hours. Vijaya welch Atorvastati n Calcium 40 MG oral Tablet 03-06 00:00: 00 01-07 00:00 :00 No 40 mg = 1 tab, PO, Bedtime, # 90 tab, 1 Refill(s) Vijaya welch levETIRAcet am (KEPPRA) 750 mg tablet 12-17 13:12: 30 Yes 750mg Take 750 mg by mouth 2 (two) times daily. [facility] donepezil (ARICEPT) 10 mg tablet 12-17 13:12: 30 Yes 10mg Take 10 mg by mouth at bedtime. [facility] Losartan Potassium 50 MG Losartan Potassium 50 MG 09-26 00:00: 00 No 1{table t} QD Losartan Potassium 50 MG donepezil 10 mg oral tablet 05-27 20:52: 00 Yes = 1 tab, PO, Daily, # 30 tab, 2 Refill(s), Pharmacy: [facility] #[id number], 144.78, cm, 07/21/19 13:59:00 TABLEMAN, Height, 50.455, kg, 07/21/19 13:59:00 TABLEMAN, Weight Mao Waldrop carBAMazepi ne 200 mg oral tablet 04-23 13:29: 00 Yes = 1 tab, PO, TID, # 90 tab, 3 Refill(s), Pharmacy: [facility] #[id number], 144.78, cm, 07/21/19 13:59:00 TABLEMAN, Height, 50.455, kg, 07/21/19 13:59:00 TABLEMAN, Weight Mao Waldrop Levetiracet am 750 MG Oral Tablet 2018-09 20:33: 51 Yes = 2 tab, PO, BID, # 360 tab, 1 Refill(s), Pharmacy: [facility] #[id number] Mao Waldrop donepezil 10 mg oral tablet 2018-09 16:52: 57 Yes = 1 tab, PO, Daily, # 30 tab, 3 Refill(s), Pharmacy: [facility] #[id number] Mao Waldrop Levetiracet am 750 MG Oral Tablet 02-23 20:26: 17 Yes = 2 tab, PO, BID, # 360 tab, 1 Refill(s), Pharmacy: [facility] [id number] Mao Waldrop carBAMazepi ne 200 mg oral tablet 02-23 20:25: 59 Yes = 1 tab, PO, TID, # 90 tab, 3 Refill(s), Pharmacy: [facility] [id number] Mao Waldrop donepezil 10 mg oral tablet 02-23 20:25: 41 Yes = 1 tab, PO, Daily, # 30 tab, 3 Refill(s), Pharmacy: [facility] [id number] Mao Waldrop carBAMazepi ne (TEGRETOL) 200 mg tablet 2015-09 19:31: 45 Yes 200mg Take 200 mg by mouth every 12 (twelve) hours. [facility] levETIRAcet am 750 MG levETIRAcet am 750 MG No 2{table ts} BID levETIRAce mahan 750 MG traMADol HCl 50 MG traMADol HCl 50 MG No 1{table t_as_ne eded} QD traMADol HCl 50 MG Immunizations Ordered Immunization Name Filled Immunization Name Date Status Comments Source Moderna COVID-19 Vaccine Moderna COVID-19 Vaccine 2021-10-01 14:42:00 Completed [facility] Moderna COVID-19 Vaccine Moderna COVID-19 Vaccine 2021-10-01 14:42:00 Completed [facility] Moderna COVID-19 Vaccine Moderna COVID-19 Vaccine 2021-10-01 14:42:00 Completed [facility] Moderna COVID-19 Vaccine Moderna COVID-19 Vaccine 2021-10-01 14:42:00 Completed [facility] Covid-19 Vaccine Moderna (Spikevax), Mrna-lnp, Benjamin Protein, 2021-10-01 00:00:00 Completed Vijaya Vázquez External Covid-19 Vaccine Moderna (Spikevax), Mrna-lnp, Benjamin Protein, 2021-10-01 00:00:00 Completed Vijaya Vázquez External Covid-19 Vaccine Moderna (Spikevax), Mrna-lnp, Benjamin Protein, 2021-10-01 00:00:00 Completed Vijaya Seybold - External Covid-19 Vaccine Moderna (Spikevax), Mrna-lnp, Benjaimn Protein, Pf 2021-10-01 00:00:00 [facility] Flu[facility] Flu[facility] 2021-06-16 15:30:00 Completed [facility] FluAD FluAD 2021-06-16 15:30:00 Completed [facility] FluAD FluAD 2021-06-16 15:30:00 Completed [facility] FluAD FluAD 2021-06-16 15:30:00 Completed [facility] FluAD FluAD 2021-06-16 15:30:00 Completed [facility] Seasonal Trivalent Influenza Vaccine, Adjuvanted, Preserve 2021-06-16 00:00:00 Completed Vijaya Caldwell - External Seasonal Trivalent Influenza Vaccine, Adjuvanted, Preserve 2021-06-16 00:00:00 Completed Vijaya Caldwell - External Seasonal Trivalent Influenza Vaccine, Adjuvanted, Preserve 2021-06-16 00:00:00 Completed Vijaya Caldwell - External Seasonal Trivalent Influenza Vaccine, Adjuvanted, Preserve 2021-06-16 00:00:00 Completed Vijaya Caldwell - External FluAD FluAD 2020-06-10 14:11:00 Completed [facility] FluAD FluAD 2020-06-10 14:11:00 Completed [facility] FluAD FluAD 2020-06-10 14:11:00 Completed [facility] FluAD FluAD 2020-06-10 14:11:00 Completed [facility] FluAD FluAD 2020-06-10 14:11:00 Completed [facility] Seasonal Trivalent Influenza Vaccine, Adjuvanted, Preserve 2020-06-10 00:00:00 Completed Vijaya Caldwell - External Seasonal Trivalent Influenza Vaccine, Adjuvanted, Preserve 2020-06-10 00:00:00 Completed Vijaya Caldwell - External Seasonal Trivalent Influenza Vaccine, Adjuvanted, Preserve 2020-06-10 00:00:00 Completed Vijaya Flynnold - External Seasonal Trivalent Influenza Vaccine, Adjuvanted, Preserve 2020-06-10 00:00:00 Completed Vijaya Seybold - External Moderna COVID-19 Vaccine Moderna COVID-19 Vaccine Unknown Completed [facility] FluAD FluAD Unknown Completed [facility] Moderna COVID-19 Vaccine Moderna COVID-19 Vaccine Unknown Completed [facility] FluAD FluAD Unknown Completed [facility] Moderna COVID-19 Vaccine Moderna COVID-19 Vaccine Unknown Completed [facility] FluAD FluAD Unknown Completed [facility] Seasonal Trivalent Influenza Vaccine, Adjuvanted, Preserve Unknown Completed Vijaya Seybold - External Covid-19 Vaccine Moderna (Spikevax), Mrna-lnp, Benjamin Protein, Pf Unknown Completed Vijaya Seybold - External Seasonal Trivalent Influenza Vaccine, Adjuvanted, Preserve Unknown Completed Vijaya Seybold - External Covid-19 Vaccine Moderna (Spikevax), Mrna-lnp, Benjamin Protein, Pf [facility] Seasonal Trivalent Influenza Vaccine, Adjuvanted, Preserve Unknown Completed [facility] Seybold - External Covid-19 Vaccine Moderna (Spikevax), Mrna-lnp, Benjamin Protein, Pf Unknown Completed Vijaya Seybold - External FLUAD TRIVALENT PF Influenza Vaccine, Adjuvanted, Preserve Unknown Completed Vijaya Seybold - External Covid-19 Vaccine Moderna (Spikevax), Mrna-lnp, Benjamin Protein, Pf Unknown Completed [facility] Seybold - External Pneumococcal Vaccine, Conjugate 20 Unknown Completed [facility] - External Vital Signs Vital Name Observation Time Observation Value Comments S ource height 2024-05-25 15:00:00 60 [in_i] Commo n [facility] weight 2024-05-25 15:00:00 102.5 [lb_av] Co mmon [facility] temperature 2024-05-25 15:00:00 97.2 [degF] Com mon [facility] bmi 2024-05-25 15:00:00 20.02 kg/m2 Comm on [facility] blood pressure systolic 2024-05-25 15:00:00 134 mm[Hg] Common [facility] blood pressure diastolic 2024-05-25 15:00:00 78 mm[Hg] Common [facility] Systolic blood pressure 2024-05-12 19:29:00 128 mm[Hg] Vijaya Seybo ld - External Diastolic blood pressure 2024-05-12 19:29:00 54 mm[Hg] Vijaya Seybo ld - External Heart rate 2024-05-12 19:29:00 52 /min Kelse y Seybold - External Body temperature 2024-05-12 19:29:00 36.22 Lia Vijaya Seybold - External Respiratory rate 2024-05-12 19:29:00 16 /min Vijaya Seybold - External Body height 2024-05-12 19:29:00 149.9 cm Marlene ey Seybold - External Body weight 2024-05-12 19:29:00 47.628 kg Marlene ey Seybold - External BMI 2024-05-12 19:29:00 21.21 kg/m2 Marlene ey Seybold - External Systolic blood pressure 2023-11-10 20:28:00 134 mm[Hg] Vijaya Seybo ld - External Diastolic blood pressure 2023-11-10 20:28:00 56 mm[Hg] Vijaya Seybo ld - External Heart rate 2023-11-10 20:28:00 60 /min Kelse y Seybold - External Body temperature 2023-11-10 20:28:00 36.17 Lia Vijaya Seybold - External Respiratory rate 2023-11-10 20:28:00 12 /min Vijaya Seybold - External Body height 2023-11-10 20:28:00 149.9 cm Marlene ey Seybold - External Body weight 2023-11-10 20:28:00 45.813 kg Marlene ey Seybold - External BMI 2023-11-10 20:28:00 20.40 kg/m2 Marlene ey Seybold - External Oxygen saturation in Arterial blood by Pulse oximetry 2023-11-10 20:28:00 97 /min Vijaya Seybo ld - External Systolic blood pressure 2023-08-17 20:15:00 100 mm[Hg] Vijaya Seybo ld - External Diastolic blood pressure 2023-08-17 20:15:00 60 mm[Hg] Vijaya Seybo ld - External Heart rate 2023-08-17 20:15:00 68 /min Kelse y Seybold - External Body temperature 2023-08-17 20:15:00 36.72 Lia Vijaya Seybold - External Respiratory rate 2023-08-17 20:15:00 18 /min Vijaya Seybold - External Body height 2023-08-17 20:15:00 149.9 cm Marlene ey Seybold - External Body weight 2023-08-17 20:15:00 44.271 kg Marlene ey Seybold - External BMI 2023-08-17 20:15:00 19.71 kg/m2 Marlene ey Seybold - External Body weight 2023-08-10 20:55:00 43.545 kg Marlene ey Seybold - External BMI 2023-08-10 20:55:00 19.39 kg/m2 Marlene ey Seybold - External Systolic blood pressure 2023-08-10 20:45:00 135 mm[Hg] Vijaya Seybo ld - External Diastolic blood pressure 2023-08-10 20:45:00 57 mm[Hg] Vijaya Seybo ld - External Heart rate 2023-08-10 20:45:00 53 /min Kelse y Seybold - External Body temperature 2023-08-10 20:45:00 36.39 Lia Vijaya Seybold - External Respiratory rate 2023-08-10 20:45:00 20 /min Vijaya Seybold - External Body height 2023-08-10 20:45:00 149.9 cm Marlene ey Seybold - External Oxygen saturation in Arterial blood by Pulse oximetry 2023-08-10 20:45:00 99 /min Vijaya Seybo ld - External Systolic blood pressure 2023-05-11 19:17:00 123 mm[Hg] Vijaya Seybo ld - External Diastolic blood pressure 2023-05-11 19:17:00 57 mm[Hg] Vijaay Seybo ld - External Heart rate 2023-05-11 19:17:00 59 /min Kelse y Seybold - External Body temperature 2023-05-11 19:17:00 36.61 Lia Vijaya Seybold - External Respiratory rate 2023-05-11 19:17:00 15 /min Vijaya Seybold - External Body height 2023-05-11 19:17:00 149.9 cm Marlene ey Seybold - External Body weight 2023-05-11 19:17:00 46.72 kg Marlene ey Seybold - External BMI 2023-05-11 19:17:00 20.80 kg/m2 Marlene ey Seybold - External Oxygen saturation in Arterial blood by Pulse oximetry 2023-05-11 19:17:00 99 /min Vijaya Seybo ld - External Systolic blood pressure 2023-02-08 19:31:00 134 mm[Hg] Vijaya Seybo ld - External Diastolic blood pressure 2023-02-08 19:31:00 55 mm[Hg] Vijaya Seybo ld - External Heart rate 2023-02-08 19:31:00 67 /min Kelse y Seybold - External Body temperature 2023-02-08 19:31:00 37.06 Lia Vijaya Seybold - External Respiratory rate 2023-02-08 19:31:00 9 /min Vijaya Seybold - External Body height 2023-02-08 19:31:00 149.9 cm Marlene ey Seybold - External Body weight 2023-02-08 19:31:00 46.72 kg Marlene ey Seybold - External BMI 2023-02-08 19:31:00 20.80 kg/m2 Marlene ey Seybold - External Oxygen saturation in Arterial blood by Pulse oximetry 2023-02-08 19:31:00 98 /min Vijaya Seybo ld - External Systolic blood pressure 2023-01-27 18:24:00 120 mm[Hg] Vijaya Seybo ld - External Diastolic blood pressure 2023-01-27 18:24:00 63 mm[Hg] Vijaya Seybo ld - External Heart rate 2023-01-27 18:24:00 56 /min Kelse y Seybold - External Respiratory rate 2023-01-27 18:24:00 16 /min Vijaya Seybold - External Body height 2023-01-27 18:24:00 149.9 cm Marlene ey Seybold - External Body weight 2023-01-27 18:24:00 47.174 kg Marlene calvin Seybold - External BMI 2023-01-27 18:24:00 21.01 kg/m2 Marlene calvin Seybold - External Systolic blood pressure 2023-01-07 14:50:00 136 mm[Hg] Vijaya Flynno ld - External Diastolic blood pressure 2023-01-07 14:50:00 58 mm[Hg] Vijaya Flynno ld - External Heart rate 2023-01-07 14:50:00 61 /min June chand Seybold - External Respiratory rate 2023-01-07 14:50:00 13 /min Vijaya Flynnold - External Body height 2023-01-07 14:50:00 149.9 cm Marlene calvin Seybold - External Body weight 2023-01-07 14:50:00 48.081 kg Marlene calvin Seybold - External BMI 2023-01-07 14:50:00 21.41 kg/m2 Marlene calvin Seybold - External Oxygen saturation in Arterial blood by Pulse oximetry 2023-01-07 14:50:00 97 /min Vijaya Parra ld - External height 2022-07-17 13:00:00 60 [in_i] Commo n [facility] weight 2022-07-17 13:00:00 107 [lb_av] Comm on [facility] temperature 2022-07-17 13:00:00 97.3 [degF] Com mon [facility] bmi 2022-07-17 13:00:00 20.89 kg/m2 Comm on [facility] oximetry 2022-07-17 13:00:00 96 % Commo n [facility] respiratory rate 2022-07-17 13:00:00 18 /min Common [facility] blood pressure systolic 2022-07-17 13:00:00 108 mm[Hg] Common [facility] blood pressure diastolic 2022-07-17 13:00:00 60 mm[Hg] Common [facility] height 2022-04-16 14:00:00 60 [in_i] Commo n [facility] weight 2022-04-16 14:00:00 107.2 [lb_av] Co mmon [facility] temperature 2022-04-16 14:00:00 97.2 [degF] Com [facility] bmi 2022-04-16 14:00:00 20.93 kg/m2 Comm on [facility] oximetry 2022-04-16 14:00:00 97 % Commo n [facility] respiratory rate 2022-04-16 14:00:00 15 /min Common [facility] blood pressure systolic 2022-04-16 14:00:00 126 mm[Hg] Common [facility] blood pressure diastolic 2022-04-16 14:00:00 61 mm[Hg] Common [facility] height 2022-04-16 14:00:00 60 [in_i] Commo n [facility] weight 2022-04-16 14:00:00 107.2 [lb_av] Co mmon [facility] temperature 2022-04-16 14:00:00 97.2 [degF] Com [facility] bmi 2022-04-16 14:00:00 20.93 kg/m2 Comm on [facility] oximetry 2022-04-16 14:00:00 97 % Commo n [facility] respiratory rate 2022-04-16 14:00:00 15 /min Common [facility] blood pressure systolic 2022-04-16 14:00:00 126 mm[Hg] [facility] blood pressure diastolic 2022-04-16 14:00:00 61 mm[Hg] [facility] Systolic blood pressure 2021-12-17 18:09:00 135 mm[Hg] [facility] Diastolic blood pressure 2021-12-17 18:09:00 63 mm[Hg] [facility] Heart rate 2021-12-17 18:09:00 57 /[facility] 2021-12-17 18:09:00 152.4 cm [facility] 2021-12-17 18:09:00 48.79 kg [facility] BMI 2021-12-17 18:09:00 21.01 kg/m2 [facility] Oxygen saturation in Arterial blood by Pulse oximetry 2021-12-17 18:09:00 96 /min [facility] height 2021-10-30 13:00:00 60 [in_i] Commo n [facility] weight 2021-10-30 13:00:00 105.0 [lb_av] Co [facility] temperature 2021-10-30 13:00:00 97.3 [degF] Com [facility] bmi 2021-10-30 13:00:00 20.5 kg/m2 Commo n [facility] oximetry 2021-10-30 13:00:00 97 % Commo n [facility] respiratory rate 2021-10-30 13:00:00 16 /min [facility] blood pressure systolic 2021-10-30 13:00:00 138 mm[Hg] [facility] blood pressure diastolic 2021-10-30 13:00:00 68 mm[Hg] [facility] height 2021-09-26 15:00:00 60 [in_i] Commo n [facility] weight 2021-09-26 15:00:00 104.0 [lb_av] Co [facility] temperature 2021-09-26 15:00:00 97.2 [degF] Com [facility] bmi 2021-09-26 15:00:00 20.31 kg/m2 Comm on [facility] oximetry 2021-09-26 15:00:00 97 % Commo n [facility] respiratory rate 2021-09-26 15:00:00 18 /min Common [facility] blood pressure systolic 2021-09-26 15:00:00 138 mm[Hg] Common [facility] blood pressure diastolic 2021-09-26 15:00:00 72 mm[Hg] Common [facility] blood pressure systolic 2021-07-17 13:00:00 138 mm[Hg] [facility] blood pressure diastolic 2021-07-17 13:00:00 70 mm[Hg] [facility] height 2021-07-17 13:00:00 60 [in_i] Commo n [facility] weight 2021-07-17 13:00:00 103 [lb_av] Comm on [facility] temperature 2021-07-17 13:00:00 96.6 [degF] Com [facility] bmi 2021-07-17 13:00:00 20.11 kg/m2 Comm on [facility] oximetry 2021-07-17 13:00:00 95 % Commo n [facility] height 2021-07-17 13:20:00 60 [in_i] Commo n [facility] weight 2021-07-17 13:20:00 103 [lb_av] Comm on [facility] temperature 2021-07-17 13:20:00 96.6 [degF] Com [facility] bmi 2021-07-17 13:20:00 20.11 kg/m2 Comm on [facility] oximetry 2021-07-17 13:20:00 95 % Commo n [facility] blood pressure systolic 2021-07-17 13:20:00 138 mm[Hg] Common [facility] blood pressure diastolic 2021-07-17 13:20:00 70 mm[Hg] Common [facility] height 2021-06-16 14:20:00 60 [in_i] Commo n [facility] weight 2021-06-16 14:20:00 107 [lb_av] Comm on [facility] temperature 2021-06-16 14:20:00 98.7 [degF] Com mon [facility] bmi 2021-06-16 14:20:00 20.89 kg/m2 Comm on [facility] oximetry 2021-06-16 14:20:00 96 % Commo n [facility] blood pressure systolic 2021-06-16 14:20:00 142 mm[Hg] Common [facility] blood pressure diastolic 2021-06-16 14:20:00 74 mm[Hg] [facility] Systolic (mm Hg) 2023-01-18 19:38:00 [facility] Diastolic (mm Hg) 2023-01-18 19:38:00 [facility] Heart Rate 2023-01-18 19:38:00 [facility] Height 2023-01-18 19:38:00 4 [ft_i] [facility] Weight 2023-01-18 19:38:00 [facility] BMI Calculated 2023-01-18 19:38:00 [facility] Systolic (mm Hg) 2022-07-24 19:44:00 [facility] Diastolic (mm Hg) 2022-07-24 19:44:00 [facility] Heart Rate 2022-07-24 19:44:00 [facility] Height 2022-07-24 19:44:00 4 [ft_i] [facility] Weight 2022-07-24 19:44:00 [facility] BMI Calculated 2022-07-24 19:44:00 [facility] Systolic (mm Hg) 2022-05-21 18:44:00 [facility] Diastolic (mm Hg) 2022-05-21 18:44:00 [facility] Heart Rate 2022-05-21 18:44:00 [facility] Respitory Rate 2022-05-21 18:44:00 [facility] Height 2022-05-21 18:44:00 144.78 cm [facility] Weight 2022-05-21 18:44:00 [facility] BMI Calculated 2022-05-21 18:44:00 [facility] Systolic (mm Hg) 2021-07-25 21:07:00 [facility] Diastolic (mm Hg) 2021-07-25 21:07:00 [facility] Heart Rate 2021-07-25 21:07:00 [facility] Respitory Rate 2021-07-25 21:07:00 [facility] Height 2021-07-25 21:07:00 144.78 cm [facility] Weight 2021-07-25 21:07:00 [facility] BMI Calculated 2021-07-25 21:07:00 [facility] Systolic (mm Hg) 2019-07-21 19:56:00 [facility] Diastolic (mm Hg) 2019-07-21 19:56:00 [facility] Heart Rate 2019-07-21 19:56:00 [facility] Respitory Rate 2019-07-21 19:56:00 [facility] Height 2019-07-21 19:56:00 144.78 cm [facility] Weight 2019-07-21 19:56:00 [facility] BMI Calculated 2019-07-21 19:56:00 [facility] Weight 2019-03-24 19:02:00 [facility] BMI Calculated 2019-03-24 19:02:00 [facility] Height 2019-03-24 19:02:00 144.78 cm [facility] Heart Rate 2019-03-24 19:02:00 [facility] Systolic (mm Hg) 2019-03-24 19:02:00 [facility] Diastolic (mm Hg) 2019-03-24 19:02:00 [facility] Respitory Rate 2019-03-24 19:02:00 [facility] Weight 2018-07-15 20:12:00 [facility] Height 2018-07-15 20:12:00 152.4 cm [facility] BMI Calculated 2018-07-15 20:12:00 [facility] Heart Rate 2018-07-15 20:12:00 Katie Waldrop Systolic (mm Hg) 2018-07-15 20:12:00 Steffanie Waldrop Diastolic (mm Hg) 2018-07-15 20:12:00 Steffanie Waldrop Procedures Procedure Date / Time Performed Performing Clinician Source GEOFF 2023-01-07 15:32:51 Harjinderjolneeady MarciaBetsy Caldwell - External MISC - NON-LEGAL REC 2022-01-22 05:01:00 Doctor Unassigned, [place] [facility] INSURANCE CORRESPONDENCE 2022-01-07 05:01:00 Doc tor Unassigned, [place] [facility] Encounters Start Date/Time End Date/Time Encounter Type Admission Type Attending Clinicians Care Facility Care Department Encounter ID Source 2024-07-24 10:30:00 Outpatient ALMANZA, Na STLMLC STLMLC [id number] [facility] 2024-06-26 07:40:00 Outpatient ALMANZA, Na STLMLC STLMLC [id number] [facility] 2024-05-15 11:34:02 Outpatient ALMANZA, Na STLMLC STLMLC [id number] [facility] 2022-09-16 15:34:01 Outpatient ALMANZA, Na STLMLC STLMLC [id number] [facility] 2022-07-20 15:43:01 Outpatient Almanza, Na STLMLC STLMLC [id number] [facility] 2022-07-15 10:52:03 Outpatient Almanza, Na STLMLC STLMLC [id number] [facility] 2022-04-14 14:48:01 Outpatient Almanza, Na STLMLC STLMLC [id number] [facility] 2022-02-25 11:37:01 Outpatient Almanza, Na STLMLC STLMLC [id number] [facility] 2022-01-27 09:18:00 Outpatient Almanza, Na STLMLC STLMLC [id number] [facility] 2021-10-30 12:49:00 Outpatient Almanza, Na STLMLC STLMLC [id number] [facility] 2021-10-03 15:04:00 Outpatient Almanza, Na STLMLC STLMLC [id number] [facility] 2021-10-01 14:42:01 Outpatient Almanza, Na STLMLC STLMLC [id number] [facility] 2021-10-01 14:37:58 Outpatient Almanza, Na STLMLC STLMLC [id number] [facility] 2021-10-01 12:10:41 Outpatient Almanza, Na STLMLC STLMLC [id number] [facility] 2021-10-01 11:42:42 Outpatient Almanza, Na STLMLC STLMLC [id number] [facility] 2021-10-01 11:32:03 Outpatient Almanza, Na STLMLC STLMLC [id number] [facility] 2021-10-01 11:28:06 Outpatient Almanza, Na STLMLC STLMLC [id number] [facility] 2024-12-04 15:30:00 2024-12-04 15:30:00 Outpatient MARCIA ROMERO [id number] [facility] 2024-11-29 16:00:00 2024-11-29 16:00:00 Outpatient WILFREDO STEELE [id number] [facility] 2024-11-29 00:00:00 2024-11-29 00:00:00 Outpatient MARCIA ROMERO [id number] [facility] 2024-11-22 00:00:00 2024-11-22 00:00:00 Outpatient MARCIA ROMERO [id number] [facility] 2024-11-09 16:15:00 2024-11-09 16:15:00 Outpatient PREZAMARCIA So [id number] Vijaya Caldwell 2024-11-09 16:15:00 2024-11-09 16:15:00 Outpatient PREMARCIA GREER [id number] Vijaya Caldwell 2024-10-27 00:00:00 2024-10-27 00:00:00 Outpatient PREZAMARCIA So [id number] Vijaya Mcwilliamsjennifer 2024-10-19 00:00:00 2024-10-19 00:00:00 Outpatient PREZAMARCIA So VIJAYA [id number] Vijaya Mcwilliamsjennifer 2024-08-16 00:00:00 2024-08-16 00:00:00 Outpatient HARJINDERZAMARCIA So VIJAYA [id number] Vijaya Caldwell 2024-08-11 16:25:00 2024-08-11 16:25:00 Outpatient LAB90 VIJAYA VIJAYA [id number] [facility] 2024-08-11 15:45:00 2024-08-11 15:45:00 Outpatient PREMARCIA GREER VIJAYA [id number] [facility] 2024-07-07 00:00:00 2024-07-07 00:00:00 Outpatient VIJAYA AQUINO [id number] [facility] 2024-06-29 14:45:00 2024-06-29 14:45:00 Outpatient VIJAYA AQUINO [id number] Vijaya [facility] 2024-06-08 00:00:00 2024-06-08 00:00:00 Outpatient VIJAYA AQUINO [id number] Vijaya [facility] 2024-05-25 00:00:00 2024-05-25 00:00:00 (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) New Patient STLMLC STLMLC [id number] [facility] 2024-05-24 00:00:00 2024-05-24 00:00:00 Outpatient VIJAYA AQUINO [id number] Vijaya [facility] 2024-05-18 00:00:00 2024-05-18 00:00:00 (TEL) STLMLC STLMLC [id number] [facility] 2024-05-15 00:00:00 2024-05-15 00:00:00 Outpatient PREZASMARCIA VIJAYA [id number] Vijaya [facility] 2024-05-15 00:00:00 2024-05-15 00:00:00 Outpatient PREZASMARCIA VIJAYA AQUINO [id number] [facility] 2024-05-12 16:00:00 2024-05-12 16:00:00 Outpatient LAB90 VIJAYA AQUINO [id number] Vijaya [facility] 2024-05-12 15:00:00 2024-05-12 15:00:00 Outpatient PREZAS, MARCIA VIJAYA AQUINO [id number] Vijaya [facility] 2024-05-12 00:00:00 2024-05-12 00:00:00 Outpatient VIJAYA AQUINO [id number] Vijaya [facility] 2024-04-23 00:00:00 2024-04-23 00:00:00 Outpatient PREZAS, MARCIA VIJAYA AQUINO [id number] [facility] 2024-04-14 00:00:00 2024-04-14 00:00:00 Outpatient PREZAS, MARCIA [facility] [id number] [facility]13 00:00:00 2024-04-13 00:00:00 Outpatient PREZASDANIELLAMARCIABETSY AQUINO [id number] [facility] 2024-03-07 00:00:00 2024-03-07 00:00:00 [id number] [facility]24-[facility]07 00:00:00 2024-03-07 00:00:00 Outpatient PIPOMARAL Robb [id number] [facility] 2024-03-07 00:00:00 2024-03-07 00:00:00 Outpatient ALMAMARAL MELENDEZ [id number] [facility] 2023-11-12 00:00:00 2023-11-12 00:00:00 Outpatient PREZASDANIELLAMARCIABETSY AQUINO [id number] [facility] 2023-11-10 15:15:00 2023-11-10 15:15:00 Outpatient LAB90 VIJAYA VIJAYA [id number] [facility] 2023-11-10 14:30:00 2023-11-10 14:30:00 Outpatient PREZAS, MARCIA VIJAYA AQUINO [id number] Vijaya Mcwilliamsybjennifer 2023-11-10 00:00:00 2023-11-10 00:00:00 Outpatient PREZAS, MARCIA AQUINO VIJAYA [id number] [facility] 2023-10-20 00:00:00 2023-10-20 00:00:00 Outpatient PREZAS, MARCIA VIJAYA AQUINO [id number] [facility] 2023-10-06 00:00:00 2023-10-06 00:00:00 Outpatient VIJAYA AQUINO [id number] [facility] 2023-10-06 00:00:00 2023-10-06 00:00:00 Outpatient PREZAS, MARCIA VIJAYA AQUINO [id number] [facility] 2023-09-16 00:00:00 2023-09-16 00:00:00 Outpatient PREZAS, MARCIA VIJAYA AQUINO [id number] [facility] 2023-08-18 00:00:00 2023-08-18 00:00:00 Outpatient VIJAYA AQUINO [id number] [facility] 2023-08-17 14:15:00 2023-08-17 14:15:00 Outpatient ANITA GARCIA VIJAYA AQUINO [id number] [facility] 2023-08-10 14:30:00 2023-08-10 14:30:00 Outpatient PREZAS, MARCIA VIJAYA AQUINO [id number] Vijaya Seybold 2023-07-09 00:00:00 2023-07-09 00:00:00 Outpatient PREZAS, MARCIA VIJAYA AQUINO [id number] Vijaya Seybold 2023-07-02 00:00:00 2023-07-02 00:00:00 Outpatient PREZAS, MARCIA VIJAYA AQUINO [id number] Vijaya Seybold 2023-07-02 00:00:00 2023-07-02 00:00:00 Outpatient VIJAYA VIJAYA [id number] Vijaya Mcwilliamsybjennifer 2023-06-24 13:10:00 2023-06-24 13:10:00 Outpatient ARELY JUAN VIJAYA AQUINO [id number] [facility]aya [facility] 2023-06-14 00:00:00 2023-06-14 00:00:00 Outpatient VIJAYA AQUINO [id number] [facility] 2023-06-10 00:00:00 2023-06-10 00:00:00 Outpatient PREZAS, MARCIA AQUINO VIJAYA [id number] [facility] 2023-05-12 00:00:00 2023-05-12 00:00:00 Outpatient PREZAS, MARCIA VIJAYA AQUINO [id number] [facility] 2023-05-11 15:00:00 2023-05-11 15:00:00 Outpatient LAB90 VIJAYA AQUINO [id number] [facility] 2023-05-11 14:30:00 2023-05-11 14:30:00 Outpatient PREZAS, MARCIA VIJAYA AQUINO [id number] [facility] 2023-04-16 19:30:00 2023-04-16 19:30:00 Ambulatory Pre-Reg MHIE [facility] [id number] [facility] rebekah Waldrop 2023-03-10 00:00:00 2023-03-10 00:00:00 Outpatient PREZAS, MARCIA VIJAYA AQUINO [id number] Vijaya [facility] 2023-02-08 14:45:00 2023-02-08 14:45:00 Outpatient PREZAS, MARCIA VIJAYA AQUINO [id number] [facility] 2023-02-08 00:00:00 2023-02-08 00:00:00 Outpatient VIJAYA AQUINO [id number] [facility] 2023-02-08 00:00:00 2023-02-08 00:00:00 Outpatient PREZAS, MARCIA VIJAYA AQUINO [id number] [facility] 2023-01-27 14:15:00 2023-01-27 14:15:00 Outpatient LAB51 VIJAYA AQUINO [id number] Vijaya [facility] 2023-01-27 13:30:00 2023-01-27 13:30:00 Outpatient MARAL CORDOVA VIJAYA AQUINO [id number] Vijaya Cal[facility] 2023-01-22 08:50:00 2023-01-22 08:50:00 Outpatient LAB90 VIJAYA AQUINO [id number] Vijaya Caldwell 2023-01-22 00:00:00 2023-01-22 00:00:00 Outpatient MARCIA ROMERO VIJAYA AQUINO [id number] Vijaya Caldwell 2023-01-22 00:00:00 2023-01-22 00:00:00 Outpatient MARCIA ROMERO VIJAYA AQUINO [id number] Vijaya Mcwilliamsj[facility]ifer 2023-01-18 19:00:00 2023-01-19 04:59:59 Outpatient MHIE [facility] [place] [facility] [id number] [facility] 2023-01-18 00:00:00 2023-01-18 00:00:00 Outpatient MARCIA ROMERO VIJAYA AQUINO [id number] Vijaya [facility] 2023-01-13 00:00:00 2023-01-13 00:00:00 Outpatient SIMON LOVE [id number] [facility] 2023-01-12 00:00:00 2023-01-12 00:00:00 Outpatient RADIOLOGY, DEPT VIJAYA AQUINO [id number] Vijaya jennifer 2023-01-07 09:30:00 2023-01-07 09:30:00 Outpatient HARJINDERMARCIA GREER VIJAYA AQUINO [id number] [facility]aya [facility] 2023-01-07 00:00:00 2023-01-07 00:00:00 Outpatient VIJAYA AQUINO [id number] Vijaya jennifer 2022-12-26 00:00:00 2022-12-26 00:00:00 Outpatient SIMON LOVE [id number] Vijaya Caldwell 2022-12-16 15:30:00 2022-12-16 15:30:00 Outpatient SIMON LOVE [id number] Vijaya Caldwell 2022-12-10 00:00:00 2022-12-10 00:00:00 (TEL) STLMLC STLMLC [id number] [facility] 2022-11-20 18:30:00 2022-11-20 18:30:00 Ambulatory Pre-Reg MHIE [facility] [place] [id number] [address] [facility] 2022-11-09 00:00:00 2022-11-09 00:00:00 (TEL) STLMLC STLMLC [id number] [facility] 2022-07-24 19:30:00 2022-07-25 05:59:59 Outpatient MHIE [facility] [place] [id number] [facility] 2022-07-17 00:00:00 2022-07-17 00:00:00 OFFICE VISIT EST PT LEVEL 3 STLMLC STLMLC [id number] [facility] 2022-07-08 14:15:00 2022-07-08 14:15:00 Outpatient MHIE MHIE [id number] [facility] 2022-06-10 00:00:00 2022-06-10 00:00:00 (TEL) STLMLC STLMLC [id number] [facility] 2022-05-21 18:15:00 2022-05-22 04:59:59 Outpatient nullFlavo r [facility] [place] [id number] [facility] rebekah [facility] 2022-05-06 00:00:00 2022-05-06 00:00:00 (TEL) STLMLC STLMLC [id number] [facility] 2022-04-18 00:00:00 2022-04-18 00:00:00 (TEL) STLMLC STLMLC [id number] [facility] 2022-04-16 00:00:00 2022-04-16 00:00:00 SUB ANNUAL [facility] WELLNESS VISIT STLMLC STLMLC [id number] [facility] 2022-04-16 00:00:00 2022-04-16 00:00:00 OFFICE VISIT EST PT LEVEL 3 STLMLC STLMLC [id number] [facility] 2022-03-06 00:00:00 2022-03-06 00:00:00 (TEL) STLMLC STLC [id number] [facility] 2022-01-22 00:00:00 2022-01-22 00:00:00 Telephone [facility] 1..[id number] [facility] 2022-01-22 00:00:00 2022-01-22 00:00:00 Orders Only Doctor Unassigned, [place] [facility] 1..840.114 [id number] [facility] 2022-01-08 09:00:00 2022-01-08 09:00:00 Outpatient R ALEIDA [facility] [id number] [facility] 2022-01-08 08:00:00 2022-01-08 08:31:00 Outpatient R ALEIDA [facility] [id number] [facility] 2022-01-07 00:00:00 2022-01-07 00:00:00 Orders Only Doctor Unassigned, [place] [id number] 350.1.13.10 4.2.7.2.686 [id number] [facility] 2021-12-17 13:00:00 2021-12-17 13:33:42 Outpatient R ALEIDA [facility] [id number] [facility] 2021-12-17 13:00:00 2021-12-17 13:33:42 Office Visit [facility] 1..840.114 350.1.13.10 4.2.7.2.686 [id number] [facility] 2021-12-17 13:00:00 2021-12-17 13:33:42 Outpatient R ELO SHIN [facility] [id number] [facility] 2021-12-17 00:00:00 2021-12-17 00:00:00 Letter (Out) Doctor Unassigned, [place] [facility] 1.2.840.114 350.1.13.10 4.2.7.2.686 [id number] [facility] 2021-12-17 00:00:00 2021-12-17 00:00:00 Letter (Out) Doctor Unassigned, [place] [facility] 1.2.840.114 350.1.13.10 4.2.7.2.686 [id number] [facility] 2021-12-17 00:00:00 2021-12-17 00:00:00 Orders Only Doctor Unassigned, [place] [facility] 1.2.840.114 350.1.13.10 4.2.7.2.686 [id number] [facility] [facility] 2021-11-19 00:00:00 2021-11-19 00:00:00 (TEL) STLMLC STLMLC [id number] [facility] 2021-11-10 15:14:48 2021-11-12 05:59:59 Outside Medical Records nullFlavo r [facility] [place] [id number] Mao Waldrop 2021-10-30 00:00:00 2021-10-30 00:00:00 OFFICE VISIT EST PT LEVEL 3 STLMLC STLMLC [id number] [facility] 2021-10-28 20:15:00 2021-10-28 20:15:00 Ambulatory Pre-Reg nullFlavo r [facility] [place] [id number] Mao Waldrop 2021-10-01 00:00:00 2021-10-01 00:00:00 (COVID Inj) COVID Injection STLMLC STLMLC [id number] [facility] 2021-09-26 00:00:00 2021-09-26 00:00:00 (TEL) STLMLC STLMLC [id number] [facility] 2021-09-26 00:00:00 2021-09-26 00:00:00 OFFICE VISIT ESTAB PT LEVEL 4 STLMLC STLMLC [id number] [facility] 2021-09-17 00:00:00 2021-09-17 00:00:00 (TEL) STLMLC STLMLC [id number] [facility] 2021-09-10 00:00:00 2021-09-10 00:00:00 (TEL) STLMLC STLMLC [id number] [facility] 2021-08-28 00:00:00 2021-08-28 00:00:00 (TEL) STLMLC STLMLC [id number] [facility] 2021-07-25 20:45:00 2021-07-26 05:59:59 Outpatient nullFlavo r [facility] [place] [id number] Mao Waldrop 2021-07-17 00:00:00 2021-07-17 00:00:00 SUB ANNUAL [facility] WELLNESS VISIT STLMLC STLMLC [id number] [facility] 2021-07-17 00:00:00 2021-07-17 00:00:00 OFFICE VISIT EST PT LEVEL 3 STLMLC STLMLC [id number] [facility] 2021-06-16 00:00:00 2021-06-16 00:00:00 OFFICE VISIT EST PT LEVEL 3 STLMLC STLMLC [id number] [facility] 2021-05-16 14:45:00 2021-05-16 14:45:00 Outpatient MHIE MHIE [id number] Mao Waldrop 2021-04-22 00:00:00 2021-04-22 00:00:00 Outpatient STLMLC STLMLC [id number] [facility] 2021-01-23 00:00:00 2021-01-23 00:00:00 Outpatient STLMLC STLMLC [id number] [facility] 2020-11-05 21:15:00 2020-11-05 21:15:00 Ambulatory Pre-Reg nullFlavo r [facility] [place] [id number] Mao Waldrop 2020-10-30 00:00:00 2020-10-30 00:00:00 Outpatient STLMLC STLMLC [id number] [facility] 2020-10-30 00:00:00 2020-10-30 00:00:00 Outpatient STLMLC STLMLC [id number] [facility] 2020-08-16 00:00:00 2020-08-16 00:00:00 Outpatient STLMLC STLMLC [id number] [facility] 2020-08-13 00:00:00 2020-08-13 00:00:00 Outpatient STLMLC STLMLC [id number] [facility] 2020-06-10 00:00:00 2020-06-10 00:00:00 Outpatient STLMLC STLMLC [id number] [facility] 2020-05-10 14:40:00 2020-05-10 14:40:00 Outpatient [facility] [id number] [facility] 2020-05-10 14:00:00 2020-05-10 14:00:00 [facility]patient [facility] [id number] [facility] 2020-05-02 04:41:00 2020-05-02 04:41:00 Outpatient Ajibade_O_A H VFP VFP [id number] [facility] 2020-05-02 04:41:00 2020-05-02 04:41:00 Outpatient Ajibade_O_A H VFP VFP [id number] [facility] 2020-05-02 04:41:00 2020-05-02 04:41:00 Outpatient Ajibade_O_A H VFP VFP [id number] [facility] 2020-04-16 14:24:00 2020-04-16 14:24:00 [place] [facility] [id number] [facility] 2020-04-10 15:41:00 2020-04-10 15:41:00 [facility] [id number] [facility] 2020-03-27 10:20:00 2020-03-27 10:20:00 [place] [place] [facility] [id number] [facility] 2020-02-26 11:20:00 2020-02-26 11:20:00 [facility] [id number] [facility] 2020-01-24 18:45:00 2020-01-24 18:45:00 Ambulatory Pre-Reg nullFlavo r [facility] [place] [id number] Mao Waldrop 2020-01-19 14:00:00 2020-01-19 14:00:00 Outpatient MHIE MHIE [id number] Mao Waldrop 2019-10-25 07:18:00 2019-10-25 07:18:00 Outpatient Ige[place] _J_AH VFP VFP [id number] [facility] 2019-10-25 07:18:00 2019-10-25 07:18:00 Outpatient [place] _J_AH VFP VFP [id number] [facility] 2019-07-21 19:30:00 2019-07-22 05:59:59 Outpatient nullFlavo r [facility] [place] [id number] Mao Waldrop 2019-03-24 19:00:00 2019-03-25 04:59:59 Outpatient nullFlavo r [facility] [place] [id number] Mao Waldrop 2018-11-25 16:00:00 2018-11-25 16:00:00 Outpatient MHIE MHIE [id number] Mao Waldrop 2018-07-15 20:00:00 2018-07-16 05:59:59 Outpatient nullFlavo r [facility] [place] [id number] Mao Waldrop 2018-03-23 14:45:00 2018-03-23 14:45:00 Outpatient IE [facility] [id number] Mao Waldrop 2018-02-09 14:00:00 2018-02-09 14:00:00 Outpatient IE IE [id number] Mao Waldrop Results Test Description Test Time Test Comments Results Result Co mments Source Vijaya Caldwell - [facility]
--- NOTE | 2024-12-01 11:32 | EDPHYS ---
Physician Documentation [facility] Name: Jolanta Stockton Age: 79 yrs Sex: Female : 1945 Arrival Date: 12/01/2024 Time: 10:53 Bed IW1 Private MD: ED Physician Golden Macdonald HPI: 12/01 11:23 This 79 yrs old Female presents to ER via Unassigned with complaints of rn blisters on face. 11:23 The patient presents with cellulitis of the face. Onset: The symptoms/episode rn began/occurred 1 week(s) ago. Severity of symptoms: At their worst the symptoms were mild, in the emergency department the symptoms are actually worse. The patient has not experienced similar symptoms in the past. Pt reports itching and rash to face, began 1 week ago. Now with blisters and increased drainage. Draining yellow/serrano drainage with crusting.. Historical: - Allergies: 11:30 No Known Allergies; jl7 - PMHx: 11:30 Hypertensive disorder; Seizures; jl7 - PSHx: 11:30 brain surgery; jl7 - Immunization history:: Adult Immunizations unknown. - Family history:: not pertinent. - Social history:: Smoking status: Patient denies any tobacco usage or history of. - Hospitalizations: : No recent hospitalization is reported. ROS: 11:23 Constitutional: Negative for fever, chills, and weight loss, Skin: + rash and infection rn to face Exam: 11:23 Constitutional: This is a well developed, well nourished patient who is awake, alert, rn and in no acute distress. Skin: Warm, + superficial rash to face with small blisters and honey-colored crusting. No involvement of eyes or oral/nasal mucosa. No bullae or fluctuance. Vital Signs: 11:29 BP 157 / 50; Pulse 52; Resp 15; Temp 97.9; Pulse Ox 97% ; jl7 MDM: 10:59 Medical Screening Exam initiated rn 11:31 Differential diagnosis: cellulitis. Data reviewed: vital signs, nurses notes, and as a rn result, I will discharge patient. Counseling: I had a detailed discussion with the patient and/or guardian regarding the historical points, exam findings, and any diagnostic results supporting the discharge/admit diagnosis, the need for outpatient follow up, to return to the emergency department if symptoms worsen or persist or if there are any questions or concerns that arise at home. Special discussion: I discussed with the patient/guardian in detail that at this point there is no indication for admission to the hospital. It is understood, however, that if the symptoms persist or worsen the patient needs to return immediately for re-evaluation. ED course: Patient with facial cellulitis consistent with impetigo. Will discharge home with antibiotics and given return precautions.. Administered Medications: No medications were administered Disposition Summary: 12/01/24 11:32 Discharge Ordered Notes: Location: Home rn Problem: new rn Symptoms: have improved rn Condition: Stable rn Diagnosis - Cellulitis of face rn - Impetigo, unspecified rn Followup: rn - With: Private Physician - When: 2 - 3 days - Reason: Recheck today's complaints, Re-evaluation by your physician Discharge Instructions: - Discharge Summary Sheet rn - Cellulitis, Adult rn - Impetigo, Adult rn Forms: - Medication Reconciliation Form rn - Antibiotic maternal child nurse - Prescription Opioid Use rn - Patient Portal Instructions rn - Leadership Thank You Letter rn Prescriptions: - mupirocin 2 % Topical ointment - apply 1 application TOPICAL route 3 times per day for 10 days; 1 unit; Refills: rn 0, Product Selection Permitted - Clindamycin HCl 300 mg Oral Capsule - take 1 capsule ORAL route every 6 hours for 10 days; 40 capsule; Refills: 0, rn Product Selection Permitted Signatures: Golden Macdonald MD MD rn Leal, Jahala, RN RN jl7
--- NOTE | 2024-12-01 11:32 | ER ---
Nurse's Notes [facility] Name: Jolanta Stockton Age: 79 yrs Sex: Female : 1945 Arrival Date: 12/01/2024 Time: 10:53 Bed IW1 Private MD: Diagnosis: Cellulitis of face;Impetigo, unspecified Presentation: 12/01 11:29 Chief complaint: Patient's son or daughter states: Blisters to forehead and chin x 1 jl7 week, itches. Coronavirus screen: At this time, the client does not indicate any symptoms associated with coronavirus-19. Ebola Screen: No symptoms or risks identified at this time. Initial Sepsis Screen: Does the patient meet any 2 criteria? No. Patient's initial sepsis screen is negative. Does the patient have a suspected source of infection? No. Patient's initial sepsis screen is negative. Risk Assessment: Do you want to hurt yourself or someone else? Patient reports no desire to harm self or others. Onset of symptoms was November 22, 2024. 11:29 Method Of Arrival: Ambulatory jl7 11:29 Acuity: UJDITH 4 jl7 Triage Assessment: 11:30 General: Appears in no apparent distress. uncomfortable, Behavior is calm, cooperative, jl7 appropriate for age. Pain: Complains of pain in face. Derm: Rash noted that is itchy, red. Historical: - Allergies: 11:30 No Known Allergies; jl7 - PMHx: 11:30 Hypertensive disorder; Seizures; jl7 - PSHx: 11:30 brain surgery; jl7 - Immunization history:: Adult Immunizations unknown. - Family history:: not pertinent. - Social history:: Smoking status: Patient denies any tobacco usage or history of. - Hospitalizations: : No recent hospitalization is reported. Vital Signs: 11:29 BP 157 / 50; Pulse 52; Resp 15; Temp 97.9; Pulse Ox 97% ; jl7 ED Course: 10:57 Patient arrived in ED. al6 10:59 Golden Macdonald MD is Attending Physician. rn 11:30 Triage completed. jl7 11:30 Arm band placed on right wrist. jl7 12:01 No provider procedures requiring assistance completed. Patient did not have IV access jl7 during this emergency room visit. 12:02 Patient has correct armband on for positive identification. jl7 Administered Medications: No medications were administered Medication: 12:02 VIS not applicable for this client. jl7 Outcome: 11:32 Discharge ordered by . rn 12:01 Discharged to home ambulatory, with family, valentina 12:01 Condition: stable 12:01 Discharge instructions given to patient, Instructed on discharge instructions, follow up and referral plans. medication usage, Demonstrated understanding of instructions, follow-up care, medications, Prescriptions given X 2, 12:02 Patient left the ED. jl7 Signatures: Golden Macdonald MD MD rn Leal, Jahala, RN RN [id number] Veronique Pérez
[2024-12-01 12:15] VITALS: BP 157/50; TEMP 97.9; O2SAT 97
== END 2024-12-01 12:02 | disposition home or self-care (01) ==
LOC: ER 10:53
DX: L03.211 Cellulitis of face (principal); L01.00 Impetigo, unspecified
CPT/HCPCS: 99283